=== PATIENT | male | born 1960 | race Caucasian/White ===

== ENCOUNTER 2024-05-25 05:52 | Inpatient (IN) ==
--- NOTE | 2024-05-01 11:03 | PAT Medication Instructions ---
Medication Instructions Date of Service May 01, 2024 Home Medications Medication Instructions Recorded tramadol 50 mg tablet 50 mg PO Q6H PRN pain #15 tabs 04/03/24 metformin 1,000 mg tablet 2,000 mg PO QPM atorvastatin 10 mg tablet 20 mg PO QPM fluticasone propionate 50 mcg/actuation nasal spray,suspension 2 spray intranasal DAILY PRN lisinopril 10 mg tablet 40 mg PO QAM omeprazole 20 mg capsule,delayed release 20 mg PO QAM polyethylene glycol 3350 17 gram oral powder packet (Miralax) 17 g PO DAILY PRN sennosides 8.6 mg-docusate sodium 50 mg tablet (Senna with Docusate Sodium) 2 tab PO BID PRN wheat dextrin 3 gram/3.5 gram oral powder packet (Benefiber Clear Sugar Free(dextrin)) 1 packet PO DAILY PRN albuterol sulfate 90 mcg/actuation aerosol inhaler 2 puff inhalation QID PRN olopatadine 0.2 % eye drops 1 drp ophthalmic (eye) BID PRN vitamin B12 1,000 mcg-folic acid 400 mcg sublingual tablet 1 tab sublingual QAM zolpidem 5 mg tablet (Ambien) 5 mg PO HS tramadol 50 mg tablet 50 mg PO Q6H PRN amlodipine 5 mg tablet 10 mg PO QAM cholecalciferol (vitamin D3) 125 mcg (5,000 unit) tablet (Vitamin D3) 125 mcg PO DAILY fluticasone fur. 100 mcg-umeclid 62.5 mcg-vilant 25 mcg inhalat.powder (Trelegy Ellipta) 1 inh inhalation QAM gabapentin 300 mg capsule 300 mg PO TID loratadine 10 mg tablet (Claritin) 10 mg PO QAM metoprolol succinate 25 mg tablet,extended release 24 hr 12.5 mg PO QAM semaglutide 0.25 mg or 0.5 mg (2 mg/3 mL) subcutaneous pen injector (Ozempic) 0.5 mg subcut UD STOP 7 days before surgery semaglutide 0.25 mg or 0.5 mg (2 mg/3 mL) subcutaneous pen injector (Ozempic) 0.5 mg subcut UD Continue as directed fluticasone propionate 50 mcg/actuation nasal spray,suspension 2 spray intranasal DAILY PRN(if needed) DO NOT take the morning of surgery lisinopril 10 mg tablet 40 mg PO QAM polyethylene glycol 3350 17 gram oral powder packet (Miralax) 17 g PO DAILY PRN sennosides 8.6 mg-docusate sodium 50 mg tablet (Senna with Docusate Sodium) 2 tab PO BID PRN wheat dextrin 3 gram/3.5 gram oral powder packet (Benefiber Clear Sugar Free(dextrin)) 1 packet PO DAILY PRN vitamin B12 1,000 mcg-folic acid 400 mcg sublingual tablet 1 tab sublingual QAM cholecalciferol (vitamin D3) 125 mcg (5,000 unit) tablet (Vitamin D3) 125 mcg PO DAILY loratadine 10 mg tablet (Claritin) 10 mg PO QAM Take morning of surgery With a small sip of water, OTHERWISE NOTHING TO EAT OR DRINK AFTER MIDNIGHT: omeprazole 20 mg capsule,delayed release 20 mg PO QAM albuterol sulfate 90 mcg/actuation aerosol inhaler 2 puff inhalation QID PRN(use if needed; please bring with you to hospital day of surgery if possible) olopatadine 0.2 % eye drops 1 drp ophthalmic (eye) BID PRN(if needed) tramadol 50 mg tablet 50 mg PO Q6H PRN(if needed) amlodipine 5 mg tablet 10 mg PO QAM fluticasone fur. 100 mcg-umeclid 62.5 mcg-vilant 25 mcg inhalat.powder (Trelegy Ellipta) 1 inh inhalation QAM gabapentin 300 mg capsule 300 mg PO TID metoprolol succinate 25 mg tablet,extended release 24 hr 12.5 mg PO QAM Take evening before surgery metformin 1,000 mg tablet 2,000 mg PO QPM atorvastatin 10 mg tablet 20 mg PO QPM sennosides 8.6 mg-docusate sodium 50 mg tablet (Senna with Docusate Sodium) 2 tab PO BID PRN(if needed) albuterol sulfate 90 mcg/actuation aerosol inhaler 2 puff inhalation QID PRN(if needed) olopatadine 0.2 % eye drops 1 drp ophthalmic (eye) BID PRN(if needed) tramadol 50 mg tablet 50 mg PO Q6H PRN(if needed) zolpidem 5 mg tablet (Ambien) 5 mg PO HS gabapentin 300 mg capsule 300 mg PO TID Other Notes If you have any questions please call us at [phone] or [phone] or [phone] or [phone]
--- NOTE | 2024-05-04 11:02 | Anesthesiology Consultation ---
Date of Service May 04, 2024 Assessment & Plan (1) Encounter for pre-operative examination: - Check BSG DOS - Infectious disease screening: Per assessment on 05/04/24- No known recent infectious disease contacts or current infectious disease symptoms. - Semaglutide instructions: Patient informed by PAT to stop 7 days prior to surgery- voiced understanding. DOS 05/25/24. Advised last dose to be 05/13/24. - Patient acceptable risk for surgery pending surgeon-ordered PCP preop evaluation ([facility] Gena Sosa, appt 05/15). Chart Review Chart Review: Patient seen in Pre Admission Testing Teaching & Discussion Pre-Anesthesia Teaching/Discussion Notes: Instructed NPO after midnight before surgery,except medications with 15 cc of water. Medication instructions provided according to the PAT guidelines. History Surgery Operation Date: 05/25/24 07:30 Proposed Procedures p Left L3-L4 Extreme Lateral Interbody Fusion, L3-L4 Fusion, L3 Laminectomy, With CT Navigation and Spinal Cord Monitoring - Fco Henry MD Height/Weight Height: 6 ft 1 in Weight: 150 kg Allergies Allergy/AdvReac Type Severity Reaction Status Date / Time No Known Allergies Allergy Verified 04/30/24 14:53 Medications Home Medications Medication Instructions Recorded Confirmed Last Taken metformin 1,000 mg tablet 2,000 mg PO QPM #0 tabs 01/03/14 04/30/24 11/23/21 atorvastatin 10 mg tablet 20 mg PO QPM #0 tabs 12/02/15 04/30/24 11/23/21 fluticasone propionate 50 2 spray intranasal DAILY PRN 12/21/17 04/30/24 Unknown mcg/actuation nasal Allergy Symptoms spray,suspension lisinopril 10 mg tablet 40 mg PO QAM 12/21/17 04/30/24 11/25/21 06:00 omeprazole 20 mg capsule,delayed 20 mg PO QAM 12/21/17 04/30/24 11/23/21 release polyethylene glycol 3350 17 gram 17 g PO DAILY PRN Constipation 12/21/17 04/30/24 11/24/21 oral powder packet (Miralax) sennosides 8.6 mg-docusate sodium 2 tab PO BID PRN Constipation 12/21/17 04/30/24 12/29/17 50 mg tablet (Senna with Docusate Sodium) wheat dextrin 3 gram/3.5 gram oral 1 packet PO DAILY PRN Constipation 12/21/17 04/30/24 Unknown powder packet (Benefiber Clear Sugar Free(dextrin)) albuterol sulfate 90 mcg/actuation 2 puff inhalation QID PRN Wheezing 11/19/21 04/30/24 Unknown aerosol inhaler olopatadine 0.2 % eye drops 1 drp ophthalmic (eye) BID PRN 11/19/21 04/30/24 Unknown Itching vitamin B12 1,000 mcg-folic acid 1 tab sublingual QAM 11/19/21 04/30/24 Unknown 400 mcg sublingual tablet zolpidem 5 mg tablet (Ambien) 5 mg PO HS Sleep 11/19/21 04/30/24 11/23/21 tramadol 50 mg tablet 50 mg PO Q6H PRN pain #15 tabs 04/03/24 04/30/24 Unknown amlodipine 5 mg tablet 10 mg PO QAM 04/30/24 04/30/24 Unknown cholecalciferol (vitamin D3) 125 125 mcg PO DAILY 04/30/24 04/30/24 Unknown mcg (5,000 unit) tablet (Vitamin D3) fluticasone fur. 100 mcg-umeclid 1 inh inhalation QAM 04/30/24 04/30/24 Unknown 62.5 mcg-vilant 25 mcg inhalat.powder (Trelegy Ellipta) gabapentin 300 mg capsule 300 mg PO TID 04/30/24 04/30/24 Unknown loratadine 10 mg tablet (Claritin) 10 mg PO QAM 04/30/24 04/30/24 Unknown metoprolol succinate 25 mg 12.5 mg PO QAM 04/30/24 04/30/24 Unknown tablet,extended release 24 hr semaglutide 0.25 mg or 0.5 mg (2 0.5 mg subcut UD 04/30/24 04/30/24 Unknown mg/3 mL) subcutaneous pen injector (Ozempic) Past Medical History Medical History Acid reflux CAD (coronary artery disease) Mild nonobstructive CAD per 2021 cath History of COVID-19 06/2019- asymptomatic Hx of colonic polyps Hx of constipation Hx of shortness of breath s/p cardiac/pulmonary evaluation/workup- no definitive etiology found per patient No longer has issues since weight loss Reason for PRN inhaler Hyperlipidemia Hypertension Insomnia Lumbar radiculopathy Osteoarthritis Pre-diabetes Taking metformin Seasonal allergies Sleep apnea CPAP (compliant) Spondylolisthesis, lumbar region Thoracic aortic ectasia CTA Chest 10/2023: Ectasia of the ascending thoracic aorta measuring 43 mm, not significantly changed since prior exam Exercise / Class Metabolic Activity III < 4 Walking/Shop/Light housework Past Family History Family History Sister Family hx of colon cancer BOWEL RESECTION Family history of diabetes mellitus Other Colorectal cancer Past Surgical History Surgical History Amputation of right index finger Partial H/O umbilical hernia repair History of cholecystectomy (2016) History of repair of rotator cuff Left x2 History of tonsillectomy Hx of cardiac cath (2021) No stents Hx of colonoscopy with polypectomy Hx of wisdom tooth extraction Past Anesthesia History No Hx of Anesthesia Complications and No Family Hx of Anesthesia Complications History of PONV No Hx of PONV and No Hx of Motion Sickness Social History Smoking Status: Former smoker tobacco type: cigarettes Do You Dip or Chew Tobacco: No Smoking End Date: Quit 27 years ago Hx Alcohol Use: Yes Alcohol type: beer alcohol intake frequency: holidays/special occasions only Hx Substance Use: No substance use type: does not use Review of Systems Patient denies chest pain, shortness of breath, fever, chills, cough, wheezing. Physical Exam Vital Signs BP 12/75 P 65 TEMP 98.3 SP02 96%RA RESP 16 Physical Full cervical extension range of motion. Full TMJ range of motion. TMD > 3.5 finger breaths Mallampati Score III Dentition: intact Lungs: clear throughout to auscultation Cardiac: regular rate and rhythm, no murmurs noted Spine: normal Carotid arteries: negative bruit Extremities: no LE edema, partial right index finger amputation Thick neck Lab Results Anesthesia Preop Results Results Anesthesia Widget: WBC 8.79 K/ul (4.8-10.8) 04/03/24 Hgb 16.0 g/dl (14.0-18.0) 04/03/24 Hct 45.6 % (42.0-52.0) 04/03/24 Plt 295 K/uL (130-400) 04/03/24 Na 139 mmol/L (136-145) 04/03/24 K 4.0 mmol/L (3.5-5.1) 04/03/24 Cl 105 mmol/L (98-107) 04/03/24 CO2 26 mmol/L (21-32) 04/03/24 BUN 13 mg/dl (6-23) 04/03/24 Creat 0.92 mg/dl (0.6-1.4) 04/03/24 Glucose Level 101 mg/dl (70-99(Fasting)) H 04/03/24 PT 10.3 Seconds (9.0-12.0) 05/04/24 PTT 29 Seconds (21-31) 05/04/24 INR 0.9 (0.9-1.1) 05/04/24 HA1c 6.7 % (4.5-5.6) H 05/04/24 Urine Color Yellow 04/03/24 Urine Appearance Clear (Clear) 04/03/24 Urine pH 5.5 (4.5-7.5) 04/03/24 Urine Specific [place] 1.033 (1.000-1.030) H 04/03/24 Urine Protein Negative (Negative) 04/03/24 Urine Glucose (UA) Negative (Negative) 04/03/24 Urine Ketones Negative (Negative) 04/03/24 Urine Blood Negative (Negative) 04/03/24 Urine Nitrite Negative (Negative) 04/03/24 Urine Bilirubin Negative (Negative) 04/03/24 Urine Urobilinogen Negative (Negative) 04/03/24 Urine Leukocyte Esterase Negative (Negative) 04/03/24 Blood Type O Positive 05/04/24 Antibody Screen NEGATIVE 05/04/24 Testing Electrocardiogram Date: 05/04/24 SR with marked sinus arrhythmia at 71bpm. "Otherwise normal ECG" Echocardiogram Date: 08/11/21 LVEF 60%. Mildly increased cLV wall thickness. Grade I DD. No pericardial effusion. Proximal ascending thoracic aorta moderately enlarged at 4.6cm. LV wall motion is normal. Stress Test Date: 07/23/21 Type: nuclear Lexiscan nuclear cardiac stress test positive for reversible ischemia. Moderate area of moderate intensity partly reversible perfusion defect of the inferior wall. LVEF 53% with stress and rest EF 45%. Mild LV systolic dysfunction. Cardiac Catheterization Date: 08/19/21 Mild non obstructive CAD. Medical management recommended. Elevated right-sided and left-sided filling pressures. Other Testing CTA Chest Date: 10/31/23 LUNGS/PLEURA: Calcified granuloma the left lung apex. No suspicious pulmonary nodules. Central airways are clear. No pleural effusion or pneumothorax. Ectasia of the ascending thoracic aorta measuring 43 mm, not significantly changed since prior exam. Moderate coronary artery atherosclerosis most significant in the LAD distribution. CTA Chest reviewed by cardiology- per cardio note 11/10/23, "Please inform the CT chest shows ascending aorta size has not increased. We will continue to monitor and follow up in 1-2 years"
[2024-05-25] MEDS: LR 60ML/HR IV SCH (06:25)
[2024-05-25] MEDS ORDERED: REMIFENTANIL HCL 1 MG VIAL IV ONE (06:51)
[2024-05-25] MEDS ORDERED: ALBUMIN HUMAN 5% 12.5 GM/250 ML VIAL IV ONE (06:51)
[2024-05-25] MEDS: LR 15ML/HR IV SCH (06:51)
[2024-05-25] MEDS ORDERED: PROPOFOL IV EMULSION 10 MG/ML 100 ML VIAL IV ONE (06:54)
[2024-05-25] MEDS ORDERED: MIDAZOLAM HCL 1 MG/ML 2ML VIAL ONE (07:05)
[2024-05-25] MEDS ORDERED: fentaNYL citrate PF 100 MCG/2 ML VIAL ONE ×2 (07:05→11:34)
[2024-05-25] MEDS ORDERED: PROPOFOL IV EMULSION 10 MG/ML 20 ML VIAL IV ONE (07:05)
[2024-05-25] MEDS ORDERED: ROCURONIUM BROMIDE 10 MG/ML 5 ML VIAL IV ONE (07:05)
[2024-05-25] MEDS ORDERED: SUCCINYLCHOLINE CHLORIDE 20 MG/ML 10 ML VIAL IV ONE (07:05)
[2024-05-25] MEDS ORDERED: LIDOCAINE 2% 2 ML VIAL/AMP(20MG/ML) INFIL ONE (07:05)
--- OUTSIDE RECORDS SUMMARY | 2024-05-25 07:19 | External Medical Summary | Summary of Care ---
Author Name Unknown Organization [facility] Address [address] [place] [address] Phone [phone] Care Team Providers Care Shoe Associate Name Role Phone Christa Valencia MD Primary Care Provider [phone] Reason for Visit * Reason Comments pre-op exam Encounter Details Date Type Department Care Team (Late st Contact Info) Description 05/15/2024 4:20 PM EST Office Visit General Internal Medicine [facility] [address] [facility] [place] [address] Christa Valencia MD [address] [place] [address] Preoperative general physical examination*; Spinal stenosis of lumbar region with neurogenic claudication; Facet arthritis of lumbar region; HTN, goal below 130/80; Type 2 diabetes, HbA1c goal < 7% ([facility]); Dyslipidemia, goal LDL below 100; DELMIS on CPAP; Nocturnal hypoxemia due to obesity; Body mass index (BMI) of 45.0 to 49.9 in adult ([facility]); Screening for prostate cancer; FH: prostate cancer; Encounter for long-term (current) use of medications Allergies No known active allergiesdocumented as of this encounter (statuses as of 05/15/2024) Medications B-12 1000 MCG Oral TabletIndications: Prediabetes,Low serum vitamin B12 1 tab daily, start 04/28/2020 1 Tab 04/28/19 21 Active Sennosides-Docusat e Sodium 8.6-50 MG Oral TabletIndications: Other constipation Take 2 Tablets by mouth 2 times a day as needed for Constipation. 1 Tablet 07/02/19 22 Active Polyethylene Glycol 3350 17 GM/SCOOP Oral PowderIndications: Other constipation Take 17 g by mouth daily as needed for Constipation. Dissolve one heaping tablespoon in 8 ounces of water or juice. 1 g 07/02/19 22 Active Olopatadine HCl 0.1 % Ophthalmic Solution (Pataday)Indicatio ns:Allergic conjunctivitis, bilateral Instill into both eyes 1 Drop 2 times a day as needed for Itching. 5 mL 5 07/02/19 22 Active Nystatin 746931 UNIT/GM External CreamIndications:C andidiasis, intertriginous,Bod y mass index (BMI) of 45.0 to 49.9 in adult (HCC) Apply topically to affected area 2 times a day . Till better. 60 g 1 12/16/19 22 Active Additional Information Patient taking differently:TopicalPRN, Other, rash, Till better., Reported on 05/15/2024 CPAP every night at bedtime . Auto 12-20 cm Active Loratadine 10 MG Oral Tablet (Claritin) Take 1 Tablet by mouth in the morning. 30 Tablet 01/07/20 22 Active Vitamin D 125 MCG (5000 UT) Oral CapsuleIndications :Vitamin D deficiency [address] 03/29/2023 03/29/20 23 Active 3 Series BP Monitor/Upper Arm DeviceIndications: HTN, goal below 140/90,DELMIS on CPAP Use to monitor blood pressure.--larg e cuff 1 Each 04/12/20 23 Active Additional Information Patient not taking.Reported on 05/15/2024 Ondansetron HCl 4 MG Oral TabletIndications: Nausea Take 1 Tablet by mouth every 8 hours as needed for Nausea. 30 Tablet 06/06/19 24 Active Lisinopril 40 MG Oral TabletIndications: HTN, goal below 140/90 TAKE 1 TABLET BY MOUTH EVERY DAY IN THE MORNING 90 Tablet 3 06/16/19 24 Active Albuterol Sulfate (2.5 MG/3ML) 0.083% Inhalation Nebulization Solution (Proventil) Inhale 1 Vial via nebulizer every 4 hours as needed for Wheezing. , use in place of rescue inhaler. 180 mL 11 07/21/19 24 Active Atorvastatin Calcium 20 MG Oral Tablet (Lipitor)Indicatio ns:Type 2 diabetes mellitus with hemoglobin A1c goal of less than 7.0% (HCC),Dyslipidemia , goal LDL below 100,Atherosclerosi s Take 1 Tablet by mouth in the morning. 90 Tablet 3 09/28/19 24 Active Albuterol Sulfate HFA 108 (90 Base) MCG/ACT Inhalation Aerosol SolutionIndication s:Moderate persistent asthma with acute exacerbation TAKE 2 PUFFS BY MOUTH EVERY 4 HOURS NEEDED FOR WHEEZE 18 g 1 11/03/19 24 Active Zolpidem Tartrate 5 MG Oral Tablet (Ambien)Indication s:Shift work sleep disorder TAKE 1 TABLET BY MOUTH EVERY DAY AT BEDTIME NEEDED FOR SLEEP 30 Tablet 3 02/06/20 24 Active Trelegy Ellipta 100-62.5-25 MCG/ACT Aerosol Powder Breath Activated (Fluticasone-Umecl idinium-Vilanterol )Indications:Moder ate persistent asthma without complication INHALE 1 PUFF BY MOUTH IN THE MORNING 60 Each 5 03/05/20 24 Active metFORMIN HCl ER 500 MG Oral Tablet Extended Release 24 Hour (Glucophage XR)Indications:Pre diabetes TAKE 4 TABLETS BY MOUTH DAILY WITH DINNER. 360 Tablet 1 03/20/20 24 Active Ozempic (0.25 or 0.5 MG/DOSE) 2 MG/3ML Solution Pen-injector (Semaglutide(0.25 or 0.5MG/DOS))Indicat ions:Type 2 diabetes, HbA1c goal < 7% (HCC) INJECT 0.5 MG UNDER THE SKIN ONCE A WEEK. DO NOT START BEFORE FEBRUARY 05, 2024. 3 mL 1 04/02/20 24 Active amLODIPine Besylate 5 MG Oral Tablet (Norvasc) Take 2 Tablets by mouth in the morning. 180 Tablet 3 04/02/20 24 Active Metoprolol Succinate ER 25 MG Oral Tablet Extended Release 24 Hour (toPROL XL)Indications:HTN , goal below 130/80,Ascending aorta dilatation (HCC) TAKE 1/2 TABLET BY MOUTH IN THE MORNING. ST 12/22/2023. 15 Tablet 2 04/03/20 24 Active Naproxen 500 MG Oral Tablet (Naprosyn)Indicati ons:Primary osteoarthritis of both knees,Pain of right hand TAKE 1 TABLET EACH DAY ON DAYS OF WORK 30 Tablet 5 04/09/20 24 Active Additional Information Patient not taking.Reported on 05/15/2024 Omeprazole 20 MG Oral Capsule Delayed Release (PriLOSEC)Indicati ons:Other chronic gastritis without hemorrhage,Primary osteoarthritis of both knees TAKE BY MOUTH 1 CAPSULE IN THE MORNING] 90 Capsule 2 04/16/20 24 Active Gabapentin 300 MG Oral Capsule (Neurontin) Take 2 Capsules by mouth in the morning and 2 Capsules at noon and 2 Capsules before bedtime. 05/09/19 25 Active documented as of this encounter (statuses as of 05/15/2024) Active Problems Problem Noted Date Diagnosed Date Spinal stenosis of lumbar re gion with neurogenic claudication 05/15/2024 Facet arthritis of lumbar region 05/15/2024 Vitamin D deficiency 09/28/2023 Body mass index (BMI) of 45.0 to 49.9 in adult 0 07/04/2023 Overview: Per Obesity protocol - Per Obesity protocol - 09/23/2010--BMI: 46.87 kg/m Ascending aorta dilatation 07/14/2022 Type 2 diabetes, HbA1c goal < 7% 02/01/2022 Overview: Per Prediabetes protocol Gastritis 01/30/2018 Overview (02/21/2018): St ppi 12/10-EGD 01/10 gastritis---bx neg HP, mild diffuse gastritis Shift work sleep disorder 09/12/2017 DELMIS on CPAP 05/18/2017 Overview (01/06/2022): Sleep study 10/09--sev OSAS--03/11-Cpap tit ouxca-Pzdc-XAD 10-20 cmH2O with heated humidity with a large F & P Simplus mask. 05/09--refuses rpt study/O2/sleep study 05/08- nocturnal oximetry shows desaturation to 81% with pattern on sleep disordered breathing.-st O2 pnd sleep study HTN, goal below 130/80 05/18/2017 Nocturnal hypoxemia due to obesity 10/07/2016 Heat stroke 10/04/2016 Overview (10/23/2016): Syncope rel to heat exhaustion at work --09/22/2012;09/09/2014; 10/04/16(1 episode after working outdoors at home 12/01/2015) History of syncope 10/04/2016 Overview (10/07/2016): 4th epi, EKG NSR, echo--ef 65%,nl valves. Status post laparoscopic cholecystectomy 016 Overview (06/08/2016): 06/07/16--lap demian with umbilical hernia incarcerated with fat -resection- 12/08-sx epi pain, n/v, ER labs nml--US-stones in contracted GB-refer sg++ Family history of GI malignancy 12/01/2015 Overview (12/01/2015): Sister -colon ca age 66 History of anal fissures 11/13/2014 FH: prostate cancer 05/16/2014 Overview (05/16/2014): Father--diag age 86- -diag sp sayn-HP-bdqb to bone Calcaneal spur of left foot 11/08/2013 Overview (11/08/2013): Xray---06/08- mod size S/P complete repair of rotator cuff 05/08/2013 Overview (01/25/2014): 01/11/14 Dr Cortez diagnostic arthroscopy w/ debridement, distal clavicle resection & revision rotator cuff repair Arthr --06/19/13-[facility] Dr Cortez 06/07/13 MRI Lt Shoulder: full thickness rotator cuff effusion subacromial subdeltoid Mild ac jt xr 04/06 Glaucoma suspect 01/25/2013 Overview (06/03/2016): [facility] [place] PLANTAR FIBROMATOSIS--RT 03/18/2010 Overview (09/23/2010): 03/04-Rt wmzi-wb-mvpvy pl spur, more broad-based insertional spur of the Achilles tendon on the posterior aspect of the calcaneus. Hyperplastic polyp of sigmoid colon 07/04/2009 Overview (12/16/2015): 12/08-[facility] csope --5 mm SC-P-> HPP (rpt 5 yrs FH colon ca sister) 10/03-csope--Anal fissure.- Left sided diverticulosis.--Start stool softener twice daily.- Start stool bulking agent (ie Metamucil or Citrucel).- Start topical nitroglycerin (prescription provided). Felix Green MD 07/04/2009 -- defers csope-- Fobt-08/02-neg Metabolic syndrome 07/04/2009 Overview (06/09/2015): Dr Verma/No diab retinopathy---11/16/11,,12/11/12, 06/06/15 Screening for prostate cancer 07/04/2009 Overview (07/04/2009): 07/02--psa 0.45 Thoracic spondylosis 06/17/2009 Overview (09/23/2010): On CT chest LH 06/04 Atherosclerosis 06/17/2009 Overview (08/30/2021): On CT LH >>>08/28/21-cath>Mild non obstructive CAD Primary osteoarthritis of both knees 01/03/2009 ACQ ACANTHOSIS NIGRICANS 01/03/2009 Dyslipidemia, goal LDL below 100 documented as of this encounter (statuses as of 05/15/2024) Resolved Problems Problem Noted Date Diagnosed Date Resolved Date Body mass index (BMI) of 50. 0 to 59.9 in adult 08/02/2022 07/07/2023 Overview: Per Obesity protocol - 09/23/2010--BMI: 46.87 kg/m Chronic obstructive pulmonary disease 12/16/2021 07/12/2022 Diabetes mellitus without complication 12/16/2021 01/06/2022 Prediabetes 10/30/2018 01/07/2022 Overview: Per Prediabetes protocol Body mass index (BMI) of 45. 0 to 49.9 in adult 07/05/2017 08/05/2022 Overview: Per Obesity protocol #1 - 09/23/2010--BMI: 46.87 kg/m Body mass index (BMI) of 40. 0 to 44.9 in adult 01/24/2017 07/08/2017 Overview: Per Obesity protocol #1 - 09/23/2010--BMI: 46.87 kg/m Arrhythmia 10/04/2016 08/16/2017 Essential hypertension with goal blood pressure less than 140/90 08/27/2015 06/03/2016 IFG (impaired fasting glucose) 01/26/2013 08/01/2021 Anal fissure 10/06/2010 01/25/2013 Body mass index (BMI) of 45.0-49.9 in adult 09/23/2010 01/27/2017 Overview (09/23/2010): 09/23/2010--BMI: 46.87 kg/m Hematuria 06/17/2009 07/06/2009 Overview (01/24/2017): Ua-- 07/02--sm blood-but 1-4 rbc ICD-10 update of inactive term Prehypertension 03/12/2009 05/08/2013 Overview (03/17/2009): 03/17/2009--see my prior notes x 2-- Modified per HTN protocol #16. TEAR MENISCUS NEC, [id number] 02/25/2009 01/06/2022 Overview (03/17/2009): Ltz62--ocvg DrRoeshrodríguez 03/07 --given cortisone in the left knee and released to return to work. Snoring 01/03/2009 01/06/2022 Overview (05/16/2014): 05/09--refuses rpt study/O2/sleep study 05/08- nocturnal oximetry shows desaturation to 81% with pattern on sleep disordered breathing.-st O2 pnd sleep study Hypertrophic and atrophic condition of skin 01/03/2009 05/29/2015 Routine medical exam 01/03/2009 016 ADVANCE DIRECTIVE INFORMATION 11/20/2004 05/29/2015 Overview (11/20/2004): No, Advance Directive brochure offered , patient declined. HYPERTENSION NOS 03/13/2009 Overview (03/13/2009): Modified per HTN protocol #16. Morbid obesity, BMI not known 07/22/2009 Overview (07/22/2009): Per Obesity Taxonomy documented as of this encounter (statuses as of 05/15/2024) Immunizations Name Administration Dates Next Due COVID-19 mRNA, LNP-s, No Pre serve, 2-Dose Series ([employer]) 03/20/2021,02/27/2021 H1N1 2008 Influenza, IM 05/23/2009 Pneumococcal Conjugate Vacci ne, 20-valent ([id number]) 01/06/2022 Seasonal Influenza Vac., MDV , IM, 0.5 mL (Fluzone) 05/16/2014,01/17/2013,03/18/2010,2008 Seasonal Influenza, PF, 6 M & above, IM , (FluLaval or Fluzone) 03/07/2023,01/06/2022,01/04/2020,2018,01/20/2018,05/18/2017 Seasonal Influenza, Quadriva lent, No Preserve, IM 02/06/2021,01/20/2018,02/21/2016,2014 TD, Preservative Free 10/24/2018 TDAP, Age 7 and older, IM (Adacel) 09/23/2008 Zoster Vaccine Recombinant (Shingrix) 10/18/2019 ,04/17/2019 documented as of this encounter Social History Tobacco Use Types Packs/Day Years Used Date Smoking Tobacco: Former Cigarettes 1 10 0 04/25/1985 - 04/25/1995 Smokeless Tobacco: Never Alcohol Use Standard Drinks/Week Comments Yes 0 (1 standard drink = 0.6 oz pur e alcohol) OCC BEER PHQ-2 Answer Date Recorded PHQ Adult Total Score 0 03/29/2023 Hunger Vital Sign Answer Date Recorded Worried About Running Out of Food in the Last Ye ar Never true 04/17/2019 Ran Out of Food in the Last Year Never true 04/17/2019 Sex and Gender Information Value Date Recorded Sex Assigned at Male 10/24/2018 8:35 AM EDT Legal Sex Male 6:01 AM EST Gender Identity Male 10/24/2018 8:35 AM EDT Sexual Orientation Straight 10/24/2018 8: 35 AM EDT documented as of this encounter Last Filed Vital Signs Vital Sign Reading Time Taken Comments Blood Pressure 118/80 05/15/2024 4:15 PM EST Pulse 76 05/15/2024 4:15 PM EST Temperature 36.9 C (98.5 F) 05/15/2024 4:15 PM ES T Respiratory Rate 18 05/15/2024 4:15 PM EST Oxygen Saturation - - Inhaled Oxygen Concentration - - Weight 149.5 kg (329 lb 9.6 oz) 05/15/2024 4:15 PM EST Height 177.8 cm (5' 10") 05/15/2024 4:15 PM EST Body Mass Index 47.29 05/15/2024 4:15 PM EST documented in this encounter Functional Status * Are you deaf or do you have serious difficulty hearing? Answer Date of Assessment Author No 10/05/2016 2:20 AM Radha Thapa RN * Are you blind or do you have serious difficulty seeing, even when wearing glasses? Answer Date of Assessment Author No 10/05/2016 2:20 AM Radha Thapa RN * Do you have serious difficulty walking or climbing stairs? (5 years old or older) Answer Date of Assessment Author No 10/05/2016 2:20 AM Radha Thapa RN * Do you have difficulty dressing or bathing? (5 years old or older) Answer Date of Assessment Author No 10/05/2016 2:20 AM Radha Thapa RN * Because of a physical, mental, or emotional condition, do you have difficulty doing errands alone such as visiting a doctors office or shopping? (15 years old or older) Answer Date of Assessment Author No 10/05/2016 2:20 AM Radha Thapa RN documented as of this encounter Mental Status * Because of a physical, mental, or emotional condition, do you have serious difficulty concentrating, remembering, or making decisions? (5 years old or older) Answer Entry Date Author No 10/05/2016 2:20 AM Radha Thapa RN documented in this encounter Progress Notes * Christa Valencia MD - 05/15/2024 4:31 PM EST SUBJECTIVE: Sukumar Harper is a 63 year old male. Chief Complaint Patient presents with pre-op exam Nursing Notes: Marlen Wang LPN 05/15/24 1637 Signed The patient has been properly identified by confirmation of name and date of . Chief Complaint Patient presents with pre-op exam HPI: Patient presents Is being seen for preoperative evaluation at the request of Dr.Eric Henry --we do not have any request from surgeon or any follow up notes updated in chart Wt Readings from Last 6 Encounters: 05/15/24 (!) 329 lb 9.6 oz (149.5 kg) 03/31/24 (!) 330 lb 11.2 oz (150 kg) 12/21/23 (!) 342 lb (155.1 kg) 09/28/23 (!) 341 lb 8 oz (154.9 kg) 07/21/23 (!) 343 lb (155.6 kg) 07/15/23 (!) 343 lb 14.7 oz (156 kg) BP Readings from Last 5 Encounters: 05/15/24 118/80 04/01/24 120/73 12/21/23 142/84 09/28/23 140/80 07/21/23 132/78 Procedure and Date of surgery:lumbar decompression and spinal fusion on 05/25/24. Patient was seen at [facility] ER 04/03/24 with low back pain radiating down leftleg. Labs normal CBC, CMP, CK 89, D-dimer 0.44 magnesium 2 X-ray lumbar spine-facet degenerative changes L4-S1, moderate disc space narrowing L5-S1. Was givenconservative treatment and discharged,. -pain got worse, went to [facility] ER 04/03/2024. Labs-normal CBC, BMP, LFT, UA. CT abdomen and pelvis [id number] diverticulosis descending and sigmoid colon, mild pericolonic inflammatory changes left lower quadrant, hepatomegaly and fatty infiltration of the liver, advanced facet hypertrophic changes L4-5 and L5-S1. Lumbar spine CT-moderate to advanced facet hypertrophic changes throughout the lumbar spine most pronounced L4 to S1, possible stent spinal stenosis suggested at L4-5. He was discharged with a prescription for Augmentin three times daily for 10 days lidocaine patch and tramadol 50 mg q.6 hours PRN 15.. States Saw surgeon Dr. Henry 04/05/2024, was given Medrol Dosepak per patient, there was some discussion regarding gabapentin but was not sure if he can take it while at work, he has not worked since, started gabapentin 04/26/2024 and dose increased to 300 mg 2 tablets 3 times a day on 05/08/2024, tolerating well. Had preoperative evaluation 05/04/2024, states blood pressure that day was 130/80 Accompanied by his . PMH-HTN, Prediabetes,hyperinsulinemia--now diabetic since 02/2023 ,morbid obesity, mild aortic atherosclerotic calcification, H/O recurrent syncope related to heat exhaustion at work in the past, Primary osteoarthritis knees, GERD , B12 def, history of intertrigo, OSAS on auto-PAP [facility], H/o laparoscopic cholecystectomy and umbilical hernia repair 05/2016 for symptomatic cholelithiasis, H/o anal fissure occasional constipation now. Intertrigo groin Proximal ascending thoracic aorta moderately enlarged, f/b cardiology--stable on last CT at 43 mm 10/31/2023 Mod moderate persistent asthma and chr rhinitis followed by pulmonology FH of colon cancer in sister, prostate cancer in father-, metastatic at age 86 age 89 , brother also diag prostate ca age 75 H/o colonoscopy with polypectomy 12/08-[facility] csope --5 mm SC-P-> HPP >>was due 11/2020. Colonoscopy [facility] 11/25/21--no polyps--Sc and Dc tics--rpt 3-5 yrs 07/14- -Lexiscan nuclear cardiac stress test positive for reversible ischemia. Moderate area on moderate intensity partly reverisble perfusion defect of the inferior wall. The LV ejection fraction is calculated at 53 % with stress and resting EF of 45%. Mild left ventricular systolic dysfunction. 08/14-echo-EF 60%, mild LVH, mild diastolic dysfunction, proximal ascending thoracic aorta moderately enlarged at 4.6 cm, aortic root mildly enlarged. Cardiac catheterization-08/14-mild nonobstructive CAD 05/04/2024-EKG at the hospital-NSR at 71 B p.m., occasional PAC Tolerating Ozempic which was started 12/2023, dose increased 5 mg weekly 02/05/2024, lost weight 13lbs as above, last dose 05/13/2024 and is being held prior to surgery Has been off NSAIDs since he has not been working Is in a wheelchair today. Denies recent fever chills runny nose sore throat cough congestion heartburn. Denies abdominal painnausea vomiting or diarrhea, history of constipation controlled on medications. No leg edema. No UTI symptoms Immunization History Administered Date(s) Administered COVID-19 mRNA, LNP-s, No Preserve, 2-Dose Series ([employer]) 02/27/2021, 03/20/2021 H1N1 2009 Influenza, IM 05/23/2009 Pneumococcal Conjugate Vaccine, 20-valent ([id number]) 01/06/2022 Seasonal Influenza Vac., MDV, IM, 0.5 mL (Fluzone) 02/18/2009, 03/18/2010, 01/17/2013, 05/16/2014 Seasonal Influenza, PF, 6 M & above, IM , (FluLaval or Fluzone) 05/18/2017, 01/20/2018, 02/02/2019, 01/04/2020, 01/06/2022, 03/07/2023 Seasonal Influenza, Quadrivalent, No Preserve, IM 03/06/2015, 02/21/2016, 01/20/2018, 02/06/2021 TD, Preservative Free 10/24/2018 TDAP, Age 7 and older, IM (Adacel) 09/23/2008 Zoster Vaccine Recombinant (Shingrix) 04/17/2019, 10/18/2019 PSA Results: Lab Results Component Value Date/Time PSA - [facility] 0.75 09/20/2023 03:33 PM PSA - [facility] 0.77 07/14/2022 04:18 PM PSA - [facility] 0.68 07/01/2021 04:59 PM PSA - [facility] 0.77 10/12/2019 11:21 AM PSA - [facility] 0.70 11/16/2017 10:35 AM PSA SCREENING 0.54 2016 07:15 AM PSA SCREENING 0.55 05/21/2015 08:58 AM PSA SCREENING 0.74 05/10/2014 03:05 PM Results for orders placed or performed in visit on 05/11/24 BASIC METABOLIC PANEL Result Value Ref Range BUN 10 6 - 20 mg/dL CREATININE 0.9 0.6 - 1.2 mg/dL EGFR >90 >=60 mL/min SODIUM 139 135 - 146 mmol/L POTASSIUM 4.2 3.5 - 5.1 mmol/L CHLORIDE 99 98 - 107 mmol/L CO2 26 22 - 32 mmol/L ANION GAP 14 7 - 15 mmol/L GLUCOSE 104 70 - 120 mg/dL CALCIUM 9.8 8.4 - 10.2 mg/dL HEMOGLOBIN A1C Result Value Ref Range Hemoglobin A1C 6.9 (H) 4.0 - 5.6 % Estimated Average Glucose 151 (H) <126 mg/dL LIPID PANEL WITH DIRECT LDL IF TG IS HIGH Result Value Ref Range Triglycerides 267 (H) <=174 mg/dL Cholesterol 160 <200 mg/dL HDL Cholesterol 35 (L) >39 mg/dL Non-HDL Cholesterol 125 <=159 mg/dL ALBUMIN / CREATININE RATIO, URINE Result Value Ref Range Albumin, Random Urine <1.20 mg/dL Creatinine, Random Urine 80 mg/dL Albumin / Creatinine Ratio, Urine <15 <30 mg/g Creat HEPATIC FUNCTION PANEL Result Value Ref Range Albumin 4.5 3.8 - 5.0 g/dL AST 18 10 - 50 U/L Alkaline Phosphatase 97 35 - 130 U/L ALT 25 10 - 50 U/L Bilirubin, Total 0.4 <=1.2 mg/dL Bilirubin, Direct 0.1 0.0 - 0.3 mg/dL Protein 7.1 6.0 - 8.3 g/dL LDL CHOLESTEROL (DIRECT MEASURE) Result Value Ref Range LDL Cholesterol (Direct Measure) 93 <=129 mg/dL Patient Active Problem List Diagnosis Dyslipidemia, goal LDL below 100 Primary osteoarthritis of both knees ACQ ACANTHOSIS NIGRICANS Thoracic spondylosis Atherosclerosis Hyperplastic polyp of sigmoid colon Metabolic syndrome Screening for prostate cancer PLANTAR FIBROMATOSIS--RT Glaucoma suspect S/P complete repair of rotator cuff Calcaneal spur of left foot Family history of malignant neoplasm of prostate History of anal fissures Family history of GI malignancy Status post laparoscopic cholecystectomy Heat stroke History of syncope Nocturnal hypoxemia due to obesity DELMIS on CPAP HTN, goal below 130/80 Shift work sleep disorder Gastritis Type 2 diabetes, HbA1c goal < 7% ([facility]) Ascending aorta dilatation ([facility]) Body mass index (BMI) of 45.0 to 49.9 in adult ([facility]) Vitamin D deficiency Current Outpatient Medications Medication Sig Dispense Refill B-12 1000 MCG Oral Tablet 1 tab daily, start 04/28/2020 1 Tab 0 Sennosides-Docusate Sodium 8.6-50 MG Oral Tablet Take 2 Tablets by mouth 2 times a day as needed for Constipation. 1 Tablet 0 Polyethylene Glycol 3350 17 GM/SCOOP Oral Powder Take 17 g by mouth daily as needed for Constipation. Dissolve one heaping tablespoon in 8 ounces of water or juice. 1 g 0 Olopatadine HCl 0.1 % Ophthalmic Solution ([place]) Instill into both eyes 1 Drop 2 times a day as needed for Itching. 5 mL 5 Nystatin 501186 UNIT/GM External Cream Apply topically to affected area 2 times a day . Till better. (Patient taking differently: Apply topically to affected area as needed for Other (rash). Till better.) 60 g 1 CPAP every night at bedtime . Auto 12-20 cm Loratadine 10 MG Oral Tablet (Claritin) Take 1 Tablet by mouth in the morning. 30 Tablet 5 Vitamin D 125 MCG (5000 UT) Oral Capsule [address] 03/29/2023 Ondansetron HCl 4 MG Oral Tablet Take 1 Tablet by mouth every 8 hours as needed for Nausea. 30 Tablet 0 Lisinopril 40 MG Oral Tablet TAKE 1 TABLET BY MOUTH EVERY DAY IN THE MORNING 90 Tablet 3 Albuterol Sulfate (2.5 MG/3ML) 0.083% Inhalation Nebulization Solution (Proventil) Inhale 1 Vial via nebulizer every 4 hours as needed for Wheezing. , use in place of rescue inhaler. 180 mL 11 Atorvastatin Calcium 20 MG Oral Tablet (Lipitor) Take 1 Tablet by mouth in the morning. 90 Tablet 3 Albuterol Sulfate HFA 108 (90 Base) MCG/ACT Inhalation Aerosol Solution TAKE 2 PUFFS BY MOUTH EVERY4 HOURS NEEDED FOR WHEEZE 18 g 1 Zolpidem Tartrate 5 MG Oral Tablet (Ambien) TAKE 1 TABLET BY MOUTH EVERY DAY AT BEDTIME NEEDED FOR SLEEP 30 Tablet 3 Trelegy Ellipta 100-62.5-25 MCG/ACT Aerosol Powder Breath Activated (Ssccoagjlcl-Dfbwanhspeck-Zmttqhquje) INHALE 1 PUFF BY MOUTH IN THE MORNING 60 Each 5 metFORMIN HCl ER 500 MG Oral Tablet Extended Release 24 Hour (Glucophage XR) TAKE 4 TABLETS BY MOUTH DAILY WITH DINNER. 360 Tablet 1 Ozempic (0.25 or 0.5 MG/DOSE) 2 MG/3ML Solution Pen-injector (Semaglutide(0.25 or 0.5MG/DOS)) INJECT 0.5 MG UNDER THE SKIN ONCE A WEEK. DO NOT START BEFORE FEBRUARY 05, 2024. 3 mL 1 amLODIPine Besylate 5 MG Oral Tablet (Norvasc) Take 2 Tablets by mouth in the morning. 180 Tablet 3 Metoprolol Succinate ER 25 MG Oral Tablet Extended Release 24 Hour (toPROL XL) TAKE 1/2 TABLET BY MOUTH IN THE MORNING. ST 12/22/2023. 15 Tablet 2 Omeprazole 20 MG Oral Capsule Delayed Release (PriLOSEC) TAKE BY MOUTH 1 CAPSULE IN THE MORNING] 90Capsule 2 Gabapentin 300 MG Oral Capsule (Neurontin) Take 2 Capsules by mouth in the morning and 2 Capsules at noon and 2 Capsules before bedtime. 3 Series BP Monitor/Upper Arm Device Use to monitor blood pressure.--large cuff (Patient not taking: Reported on 05/15/2024) 1 Each 0 Naproxen 500 MG Oral Tablet (Naprosyn) TAKE 1 TABLET EACH DAY ON DAYS OF WORK (Patient not taking: Reported on 05/15/2024) 30 Tablet 5 No current facility-administered medications for this visit. Past Medical History: Diagnosis Date Dyslipidemia, goal to be determined HTN, goal to be determined no meds Morbid obesity, BMI not known (HCC) DELMIS (obstructive sleep apnea) Osteoarthrosis Preglaucoma IOP max 22 OU; C/D 0.6 OU; FH +;VF 09/26 Past Surgical History: Procedure Laterality Date COLONOSCOPY, DIAGNOSTIC (RECTUM) 09/30/2010 diverticulosis, anal fissure COLONOSCOPY, DIAGNOSTIC (RECTUM) 12/03/2015 hyperplastic polyps, repeat 5 yrs/[facility] COLONOSCOPY, DIAGNOSTIC (RECTUM) 11/25/2021 diverticulosis, repeat 3-5 yrs / [facility] CORONARY ANGIOGRAPHY W/RIGHT+LEFT CATH 08/19/2021 CORONARY ANGIOGRAPHY W/RIGHT+LEFT CATH performed by Zo Kelly MD at [facility] DRAINAGE OF FOREARM/WRIST LESION Right 11/30/2014 INCISION AND DRAINAGE FOREARM WRIST DEEP performed by Garrison Smith MD at [facility] EGD, FLEXIBLE, DIAGNOSTIC 12/30/2017 mild gastric inflammation/[facility] LAPAROSCOPY, CHOLECYSTECTOMY WITH CHOLANGIOGRAPHY N/A 06/07/2016 LAPAROSCOPIC CHOLECYSTECTOMY WITH CHOLANGIOGRAM performed by Kirsten Romero DO at OR [facility] METACARPAL FX W/FIXATION Right 11/30/2014 OPEN TREATMENT METACARPAL FRACTURE performed by Garrison Smith MD at OR [facility] REMOVE PILONIDAL CYST, SIMPLE REMOVE TONSILS & ADENOIDS, AGE 12+ REPAIR SHOULDER CUFF AVULSION Left 06/19/2013 Dr Cortez REPAIR SHOULDER CUFF AVULSION Left 01/11/2014 revision - Dr Cortez Review of patient's allergies indicates: No Known Allergies Family History Problem Relation Name Age of Onset Cancer Mother Liver, Pancreatic Glaucoma Father age 82 Cancer Father 86 prostate -diag sp bboi-RC-sset to bone Cancer Sister Rachana 66 colon with mets Diabetes Sister Rachana Hypertension Sister Rachana Cancer Brother Kayden 75 prostate No Known Problems Brother Dave Social History Tobacco Use Smoking status: Former Current packs/day: 0.00 Average packs/day: 1 pack/day for 10.0 years (10.0 ttl pk-yrs) Types: Cigarettes Start date: 04/25/1985 Quit date: 04/25/1995 Years since quittin.0 Smokeless tobacco: Never Vaping Use Vaping status: Never Used Substance Use Topics Alcohol use: Yes Comment: [facility] Drug use: Never OBJECTIVE: BP 118/80 | Pulse 76 | Temp 98.5 F (36.9 C) | Resp 18 | Ht 5' 10" (1.778 m) | Wt (!) 329 lb 9.6oz (149.5 kg) | BMI 47.29 kg/m | BSA 2.72 m PHYSICAL EXAM: General: alert, healthy, no distress, well nourished and well developed, morbid obesity+ Head: Normocephalic, atraumatic Eye Exam: PERRLA, EOMI, Conjunctiva are pink and non-injected, sclera clear Ears: External ears normal Nose: no mucosal erythema, no mucosal edema, no purulent discharge Oropharynx: no exudate and no erythema Neck: supple, no adenopathy, no JVD, thyroid normal size, non-tender, without nodularity Lymph: No palpable lymphadenopathy. Heart: regular Rhythm and rate, no murmurs. Lungs: lungs clear to auscultation Abdomen: soft, non-tender, normal bowel sounds, no masses or organomegaly, no bruits Extremities: no edema, no clubbing, no cyanosis Neuro Exam: alert & oriented x 3 with fluent speech, no focal motor deficits, gait not tested Skin: skin color, texture, turgor are normal, no rashes ASSESSMENT/PLAN: Preoperative general physical examination (Primary) Spinal stenosis of lumbar region with neurogenic claudication Facet arthritis of lumbar region HTN, goal below 130/80 - BASIC METABOLIC PANEL; Future; Expected date: 11/12/2024 Type 2 diabetes, HbA1c goal < 7% ([facility]) - HEMOGLOBIN A1C; Future; Expected date: 11/12/2024 - MAGNESIUM; Future; Expected date: 11/12/2024 - VITAMIN B12; Future; Expected date: 11/12/2024 Dyslipidemia, goal LDL below 100 - ALT; Future; Expected date: 11/12/2024 - LIPID PANEL WITH DIRECT LDL IF TG IS HIGH; Future; Expected date: 11/12/2024 DELMIS on CPAP Nocturnal hypoxemia due to obesity Body mass index (BMI) of 45.0 to 49.9 in adult ([facility]) Screening for prostate cancer - PSA; Future; Expected date: 11/12/2024 FH: prostate cancer - PSA; Future; Expected date: 11/12/2024 Encounter for long-term (current) use of medications - MAGNESIUM; Future; Expected date: 11/12/2024 - VITAMIN B12; Future; Expected date: 11/12/2024 Patient is at low risk For perioperative cardiac event and may undergo the proposed surgery under noninvasive cardiac monitoring. Needs to be monitored for hypoxia postoperatively and use CPAP. NSAID is on hold since he is off work Ozempic on hold preop, LD 05/13/24, resume post-op To take metoprolol morning of surgery with sip of water, other BP meds maybe ok to take based on timing of surgery and check with pre-anesthesia 40 min total time spent with patient, time spent reviewing subspecialty notes, diagnostic studies done, follow-up orders/medication refills,over 1/2 time spent in counseling, coordinating care. Follow Up: Return in about 1 month (around 06/15/2024), or if symptoms worsen or fail to improve, for Return with Physician. | For: Return with Physician | Check-out note: Postop Cc - referring provider.. (This note was completed using the dictation program Fluency Direct. As such, there may be misspellings, word substitutions, or other variations that should not change the essence of the clinical content of this encounter note. If there is need for further clarification, please direct questions to the provider listed above.) Patient and / caregiver verbalize understanding of above instructions and agrees with plan of care. Christa Valencia MD 05/15/2024 documented in this encounter Nursing Notes * Marlen Wang LPN - 05/15/2024 4:15 PM EST The patient has been properly identified by confirmation of name and date of . Chief Complaint Patient presents with pre-op exam documented in this encounter Plan of Treatment Upcoming Encounters Date Type Department Care Team (Late st Contact Info) Description 06/27/2024 5:00 PM EST Office Visit General Internal Medicine [facility] [address] [facility] [place] [address] Christa [facility] MD [address] [facility] [address] 08/06/2024 2:30 PM EDT PulmDiagnostic Pulmonary Function Lab Marcelo Jones [address] [address] [address], [address] [place] [address] 08/14/2024 3:00 PM EDT Office Visit Pulmonary Medicine Marcelo Jones [address] [phone] Davin Gallegos MD [address] [place] [address] Scheduled Orders Name Type Priority Associated Diagnoses Orde r Schedule PSA Lab Routine Screening for prostate cancer FH: prostate cancer Expected: 11/12/2024 (Approximate), Expires: 05/15/2025 ALT Lab Routine Dyslipidemia, goal LDL below 100 Expected: 11/12/2024 (Approximate), Expires: 05/15/2025 BASIC METABOLIC PANEL Lab Routine HTN, goal below 130/80 Expected: 11/12/2024 (Approximate), Expires: 05/15/2025 LIPID PANEL WITH DIRECT LDL IF TG IS HIGH Lab Routine Dyslipidemia, goal LDL below 100 Expected: 11/12/2024 (Approximate), Expires: 05/15/2025 HEMOGLOBIN A1C Lab Routine Type 2 diabetes, HbA1c goal < 7% (HCC) Expected: 11/12/2024 (Approximate), Expires: 05/15/2025 MAGNESIUM Lab Routine Type 2 diabetes, HbA1c goal < 7% (HCC) Encounter for long-term (current) use of medications Expected: 11/12/2024 (Approximate), Expires: 05/15/2025 VITAMIN B12 Lab Routine Type 2 diabetes, HbA1c goal < 7% (HCC) Encounter for long-term (current) use of medications Expected: 11/12/2024 (Approximate), Expires: 05/15/2025 Scheduled Procedures Name Priority Associated Diagnoses Date/Ti me COLONOSCOPY FLEXIBLE PROXIMA L DIAGNOSTIC Recall History of colon polyps Family history of colon cancer Health Maintenance Due Date Last Done Comments HIV Screening 1974 Hepatitis C Screening 1977 Cologuard 2004 Sigmoidoscopy 2004 Fecal Occult Blood Test 07/23/2010 07/23/2009, 10/03 COVID-19 Vaccine ( season) 2023 03/20/2021, 02/27/2021 Depression Screening 03/29/2024 03/29/2023 HbA1c 11/08/2024 05/11/2024, 11/24, 09/20/2023, Additional history exists Colonoscopy 11/25/2024 11/25/2021, 11/23, 09/30/2010 Colorectal Cancer Screening 11/25/2024 Diabetic Eye Exam 12/20/2024 12/21/2023, , 07/20/2021, Additional history exists Diabetic Foot Exam 12/20/2024 12/21/2023, 01/06/2022 Albumin/Creatinine Ratio 05/11/2025 025, 09/20/2023, 07/14/2022, Additional history exists GFR 05/11/2025 05/11/2024, 1210/2023, 09/20/2023, Additional history exists DTap/Tdap Vaccines (3 - Td or Tdap) 10/24/2028 10/24/2018, 09/23/2008 Zoster Vaccines Completed 10/18/2019, 04/17/2019 RETIRED - COLONOSCOPY-EVERY 5 YRS AGES 18-100 Discontinued 11/25/2021, 12/03/2015, 09/30/2010 Pneumococcal Vaccine: 50+ Years Completed 01/06/2022 Influenza Vaccine (FLU shot) Completed 01/05/2024, 03/07/2023, 01/06/2022, Additional history exists HPV (Gardasil) Vaccine Aged Out No lo nger eligible based on patient's age to complete this topic Hepatitis B Vaccine Aged Out No longe r eligible based on patient's age to complete this topic MENINGOCOCCAL (MENACTRA/MENVEO) Aged Out No longer eligible based on patient's age to complete this topic documented as of this encounter Medical Devices Implanted Type Area Frozen Pie Maker Device Identifier Shelf Expiration Date Model / Serial / Lot Patch Hernia Med [id number] - [id number] Implanted:Qty: 1 on 06/07/2016 by Kirsten Romero DO at OR [facility] N/A: Abdomen CR BARD : DAVOL 06/22/2019 [id number] / / [id number] Cath Thermodilution 6fr - [id number] Implanted:Qty: 1 on 08/19/2021 by Zo Kelly MD at [facility] [employer] VIVIANA [id number] 07/09/2023 [id number] / / [id number] documented as of this encounter Visit Diagnoses Diagnosis Preoperative general physical examination- Primary Other specified pre-operative examination Spinal stenosis of lumbar region with neurogenic claudication Spinal stenosis, lumbar region, with neurogenic claudication Facet arthritis of lumbar region Lumbosacral spondylosis without myelopathy HTN, goal below 130/80 Unspecified essential hypertension Type 2 diabetes, HbA1c goal < 7% ([facility]) Type II or unspecified type diabetes mellitus without mention of complication, not stated as uncontrolled Dyslipidemia, goal LDL below 100 Other and unspecified hyperlipidemia DELMIS on CPAP Obstructive sleep apnea (adult) (pediatric) Nocturnal hypoxemia due to obesity Obesity, unspecified Body mass index (BMI) of 45.0 to 49.9 in adult (HCC) Screening for prostate cancer Special screening for malignant neoplasm of prostate FH: prostate cancer Family history of malignant neoplasm of prostate Encounter for long-term (current) use of medications Encounter for long-term (current) use of other medications documented in this encounter Advance Directives * Full Code (Latest Code Status on File) Date Activated Date Inactivated Comments 10/04/2016 10:17 PM 10/06/2016 5:48 PM This order reflects the patients wishes and were consensually agreed upon. Question Answer Comments Discussion of Advance Directives occurred with: Not Discussed Does the patient have a Living Will? No Does the patient have Health Care Power of Attor dandy? No * Full Code Date Activated Date Inactivated Comments 06/07/2016 12:08 PM 06/07/2016 9:50 PM This order reflects the patients wishes and were consensually agreed upon. Question Answer Comments Discussion of Advance Directives occurred with: Not Discussed Does the patient have a Living Will? No Does the patient have Health Care Power of Attor dandy? No * Full Code Date Activated Date Inactivated Comments 11/30/2014 3:03 PM 12/01/2014 1:48 AM This order ref lects the patients wishes and were consensually agreed upon. * Full Code Date Activated Date Inactivated Comments 11/30/2014 12:22 AM 11/30/2014 3:03 PM . Question Answer Comments Discussion of Advance Directives occurred with: Not Discussed Care Teams Shoe Associate Relationship Specialty Start Date End Date Christa Valencia MD [address] [place] [address] PCP - General Internal Medicine 11/25/15 documented as of this encounter
--- OUTSIDE RECORDS SUMMARY | 2024-05-25 07:19 | External Medical Summary ---
Author Name Unknown Address Unknown Organization [id number]:LABORATORY [facility] - [facility] [address] [facility] [place] [address] Laboratory Report Ordering Provider Test Date Status SHER ORDAZ 05/11/2024 15:44:13 Final Observation Date Value Abnormality Reference (Units ) Status Albumin 05/11/2024 15:44:13 4.5 3.8-5.0 (g/dL) Final AST (Aspartate aminotransferase) 05/11/2024 15:44:13 18 10-50 (U/L) Final Results may be falsely eleva nelia due to hemolysis. Alk Phos 05/11/2024 15:44:13 97 35-130 (U/ L) Final ALT (Alanine aminotransferase) 05/11/2024 15:44:13 25 10-50 (U/L) Final Bilirubin, Total 05/11/2024 15:44:13 0.4 <=1 .2 (mg/dL) Final Bilirubin, Direct 05/11/2024 15:44:13 0.1 0. 0-0.3 (mg/dL) Final Result may be falsely decrea sed due to hemolysis. Protein 05/11/2024 15:44:13 7.1 6.0-8.3 (g /dL) Final Performing Location LABORATORY [facility] - [address] [place] [address]
--- OUTSIDE RECORDS SUMMARY | 2024-05-25 07:19 | External Medical Summary ---
Author Name Unknown Address Unknown Organization [id number]:[facility] - [address] [facility] [address] Laboratory Report Ordering Provider Test Date Status SHER ORDAZ 05/11/2024 15:44:13 Final Observation Date Value Abnormality Reference (Units ) Status Triglyceride 05/11/2024 15:44:13 267 Above high normal <=174 (mg/dL) Final Triglyceride Reference Range s (mg/dL):
<150 Acceptable
150-174 Borderline high
175-499 High
>=500 Very high Cholesterol 05/11/2024 15:44:13 160 <200 (mg /dL) Final Total Cholesterol Reference Ranges (mg/dL):
<200 Desirable
200-239 Borderline high
>=240 High HDL 05/11/2024 15:44:13 35 Below low normal >39 (mg/dL) Final HDL Cholesterol Reference Ra nges (mg/dL):
>=60 High (Desirable)
<50 Low (Undesirable) For Females
<40 Low (Undesirable) For Males NON-HDL CHOLESTEROL 05/11/2024 15:44:13 125 <=159 (mg/dL) Final Non-HDL Cholesterol Referenc e Range (mg/dL):
<100 Target level for high risk ASCVD patient
<130 Optimal for general population
130-159 Near optimal for general population
160-189 Borderline High
190-219 High
>=220 Very High Performing Location [facility]ORY [facility] - [address] [facility] [address]
--- OUTSIDE RECORDS SUMMARY | 2024-05-25 07:19 | External Medical Summary | Summary of Care ---
Author Name Unknown Organization [facility] Address [address] [place] [address] Phone [phone] Care Team Providers Care Certified Green Building Engineer Name Role Phone Christa Valencia MD Primary Care Provider [phone] Reason for Visit * Reason Comments Outpatient Testing Encounter Details Date Type Department Care Team (Late st Contact Info) Description 05/11/2024 4:10 PM EST Laboratory Laboratory, [facility] [address] [place] [phone] [facility], Lab [address] [place] [address] Type 2 diabetes mellitus with hemoglobin A1c goal of less than 7.0% ([facility]); HTN, goal below 140/90; DELMIS on CPAP; Dyslipidemia, goal LDL below 100 Allergies No known active allergiesdocumented as of this encounter (statuses as of 05/11/2024) Medications B-12 1000 MCG Oral TabletIndications: Prediabetes,Low [...] 5 mL 5 07/02/19 22 Active Nystatin 935793 UNIT/GM External CreamIndications:C andidiasis, intertriginous,Bod y mass index (BMI) of 45.0 to 49.9 in adult ([facility]) Apply topically to affected area 2 times a day . Till better. 60 g 1 12/16/19 22 Active Additional Information Patient taking differently:TopicalPRN, Other, rash, Till better., Reported on 03/29/2023 CPAP every night at bedtime . Auto [...] Active Additional Information Patient not taking.Reported on 06/06/2023 Ondansetron HCl 4 MG Oral TabletIndications: Nausea [...] hemoglobin A1c goal of less than 7.0% ([facility]),Dyslipidemia , goal LDL below 100,Atherosclerosi s Take 1 Tablet by mouth in the morning. 90 Tablet 3 06/05/20 24 Active Albuterol Sulfate HFA 108 (90 [...] WORK 30 Tablet 5 04/09/20 24 Active Omeprazole 20 MG Oral Capsule Delayed Release (PriLOSEC)Indicati ons:Other chronic gastritis without hemorrhage,Primary osteoarthritis of both knees TAKE BY MOUTH 1 CAPSULE IN THE MORNING] 90 Capsule 2 04/16/20 24 Active documented as of this encounter (statuses as of 05/11/2024) Active Problems Problem Noted Date Diagnosed Date Vitamin D deficiency 09/28/2023 Body mass index [...] Overview (01/06/2022): Sleep study 10/09--sev OSAS--03/11-Cpap tit [id number]-Rzru-XQH 10-20 cmH2O with heated humidity with a [...] age 65 History of anal fissures 11/13/2014 Family history of malignant neoplasm of prostate 05/16/2014 Overview (05/16/2014): Father--diag age 86- -diag sp yrbp-IE-yobx to bone Calcaneal spur of left foot 11/08/2013 Overview (11/08/2013): Xray---06/08- mod size S/P complete repair of rotator cuff 05/08/2013 Overview (01/25/2014): 01/11/14 Dr Cortez diagnostic arthroscopy w/ debridement, distal clavicle resection & revision rotator cuff repair Arthr SG --06/19/13-[facility] Dr Cortez 06/07/13 MRI Lt Shoulder: full thickness rotator cuff effusion subacromial subdeltoid Mild ac jt xr 04/06 Glaucoma suspect 01/25/2013 Overview (06/03/2016): Fu [place] PLANTAR FIBROMATOSIS--RT 03/18/2010 Overview (09/23/2010): 03/04-Rt moik-cf-dibat pl spur, more broad-based insertional spur of the Achilles tendon on the posterior aspect of the calcaneus. Hyperplastic polyp of sigmoid colon 07/04/2009 Overview (12/16/2015): 12/08-[facility] csope --5 mm SC-P-> HPP (rpt 5 [...] as of this encounter (statuses as of 05/11/2024) Resolved Problems Problem Noted Date Diagnosed Date [...] per HTN protocol #16. TEAR MENISCUS NEC, [id number] 02/25/2009 01/06/2022 Overview (03/17/2009): Ill37--fubf Michel 03/07 --given cortisone in the left knee [...] as of this encounter (statuses as of 05/11/2024) Immunizations Name Administration Dates Next Due COVID-19 mRNA, LNP-s, No Pre serve, 2-Dose Series (Pfizer) 03/20/2021,02/27/2021 H1N1 2009 Influenza, IM 05/23/2009 Pneumococcal Conjugate Vacci ne, 20-valent ([id number]) 01/06/2022 Seasonal Influenza Vac., MDV , IM, [...] AM EDT documented as of this encounter Functional Status * Are you [...] Radha Thapa RN documented in this encounter Plan of Treatment Upcoming Encounters Date Type Department Care Team (Late st Contact Info) Description 05/15/2024 4:20 PM EST Office Visit General Internal Medicine [facility] [address] [place] [address] Christa Valencia MD [address] [facility] [place] [address] 08/06/2024 2:30 PM EDT PulmDiagnostic Pulmonary Function Lab Marcelo Jones [address] [address] [address], [address] [place] [address] 08/14/2024 3:00 PM EDT Office Visit Pulmonary Medicine Marcelo Jones [address] [phone] Davin Gallegos MD [address] [address] Pending Results Name Type Priority Associated Diagnoses Date /Time BASIC METABOLIC PANEL Lab Routine Type 2 diabetes mellitus with hemoglobin A1c goal of less than 7.0% (HCC) HTN, goal below 140/90 DELMIS on CPAP 05/11/2024 3:44 PM EST HEMOGLOBIN A1C Lab Routine Type 2 diabetes mellitus with hemoglobin A1c goal of less than 7.0% (HCC) 05/11/2024 3:44 PM EST LIPID PANEL WITH DIRECT LDL IF TG IS HIGH Lab Routine Type 2 diabetes mellitus with hemoglobin A1c goal of less than 7.0% (HCC) Dyslipidemia, goal LDL below 100 05/11/2024 3:44 PM EST ALBUMIN / CREATININE RATIO, URINE Lab Routine Type 2 diabetes mellitus with hemoglobin A1c goal of less than 7.0% (HCC) 05/11/2024 3:44 PM EST HEPATIC FUNCTION PANEL Lab Routine Type 2 diabetes mellitus with hemoglobin A1c goal of less than 7.0% (HCC) 05/11/2024 3:44 PM EST Scheduled Procedures Name Priority Associated Diagnoses Date/Ti me COLONOSCOPY FLEXIBLE PROXIMA L DIAGNOSTIC Recall History of colon polyps Family history of colon cancer Health Maintenance Due Date Last Done Comments HIV Screening 1974 Hepatitis C Screening 1977 Cologuard 2004 Sigmoidoscopy 2004 Fecal Occult Blood Test 07/23/2010 07/23/2009, 10/03 COVID-19 Vaccine ( season) 2023 03/20/2021, 02/27/2021 Depression Screening 03/29/2024 03/29/2023 HbA1c 06/22/2024 12/21/2023, 08/24, 03/22/2023, Additional history exists Albumin/Creatinine Ratio 09/19/2024 024, 07/14/2022, 07/01/2021, Additional history exists Colonoscopy 11/25/2024 11/25/2021, 11/23, 09/30/2010 Colorectal Cancer Screening 11/25/2024 Diabetic Eye Exam 12/20/2024 12/21/2023, , 07/20/2021, Additional history exists Diabetic Foot Exam 12/20/2024 12/21/2023, 01/06/2022 GFR 03/31/2025 03/31/2024, 08/24, 03/22/2023, Additional history exists DTap/Tdap Vaccines (3 - [...] this encounter Medical Devices Implanted Type Area Automatic Blocker Device Identifier Shelf Expiration Date Model / Serial / Lot Patch Hernia Med [id number] - [id number] Implanted:Qty: 1 on 06/07/2016 by Kirsten Romero DO at OR [facility] N/A: Abdomen CR BARD : DAVOL 06/22/2019 [id number] / / [id number] Cath Thermodilution 6fr - [id number] Implanted:Qty: 1 on 08/19/2021 by Zo Kelly MD at [facility] [place] [employer] VIVIANA [id number] 07/09/2023 [id number] / / [id number] documented as of this encounter Visit Diagnoses Diagnosis Type 2 diabetes mellitus with hemoglobin A1c goal of less than 7.0% (HCC) HTN, goal below 140/90 Unspecified essential hypertension DELMIS on CPAP Obstructive sleep apnea (adult) (pediatric) Dyslipidemia, goal LDL below 100 Other and unspecified hyperlipidemia documented in this encounter Advance Directives * [...] Directives occurred with: Not Discussed Care Teams Certified Green Building Engineer Relationship Specialty Start Date End Date Christa Valencia MD [address] [place] [address] PCP - General Internal Medicine 11/25/15 documented as of this encounter
--- OUTSIDE RECORDS SUMMARY | 2024-05-25 07:19 | External Medical Summary ---
Author Name Unknown Address Unknown Organization K01:[facility]ATORY [facility] [place] - [address] [facility] [address] [place] [place] [address] Laboratory Report Ordering Provider Test Date Status SHER ORDAZ 05/11/2024 15:44:13 Final Observation Date Value Abnormality Reference (Units ) Status BUN 05/11/2024 15:44:13 10 6-20 (mg/dL) Final Creatinine 05/11/2024 15:44:13 0.9 0.6-1.2 (mg/dL) Final Glomerular filtration rate/1.73 sq M.predicted [Volume Rate/Area] in Serum, Plasma or Blood by Creatinine-based formula (CKD-EPI) 05/11/2024 15:44:13 >90 >=60 (mL/min) Final eGFR is calculated based on the CKD-EPI 2020 equation. Sodium 05/11/2024 15:44:13 139 135-146 (m mol/L) Final Potassium 05/11/2024 15:44:13 4.2 3.5-5.1 (m mol/L) Final Cl 05/11/2024 15:44:13 99 98-107 (mm ol/L) Final CO2 05/11/2024 15:44:13 26 22-32 (mmo l/L) Final Anion gap 05/11/2024 15:44:13 14 7-15 (mmol /L) Final Glucose 05/11/2024 15:44:13 104 70-120 (mg /dL) Final Calcium 05/11/2024 15:44:13 9.8 8.4-10.2 ( mg/dL) Final Performing Location LAB[facility]ATORY [facility] [place] - [address] [place] [address]
--- OUTSIDE RECORDS SUMMARY | 2024-05-25 07:19 | External Medical Summary ---
Author Name Unknown Address Unknown Organization [id number]:LABORATORY [facility] [place] - [address] [place] [address] Laboratory Report Ordering Provider Test Date Status SHER ORDAZ 05/11/2024 15:44:13 Final Observation Date Value Abnormality Reference (Units ) Status LDL, (direct) 05/11/2024 15:44:13 93 <=129 (mg/dL) Final LDL Cholesterol Reference Ra nges (mg/dL):
<70 Target level for high risk ASCVD patient
<100 Optimal for general population
100-129 Near optimal for general population
130-159 Borderline high
160-189 High
>=190 Very high Performing Location LABORATORY [facility] - [address] [place] [address]
--- OUTSIDE RECORDS SUMMARY | 2024-05-25 07:19 | External Medical Summary ---
Author Name Unknown Address Unknown Organization [id number]:LABORATORY [facility] [place] - [facility] [address] [place] [address] Laboratory Report Ordering Provider Test Date Status SHER ORDAZ 05/11/2024 15:44:13 Final Normal: <30 mg/g creatinine< br/>High: 30-300 mg/g creatinine
Very High: >300 mg/g creatinine
Nephrotic: >2200 mg/g creatinine Observation Date Value Abnormality Reference (Units ) Status Albumin, Urine 05/11/2024 15:44:13 <1.20 (mg/dL) Final Creatinine, Urine 05/11/2024 15:44:13 80 (mg/dL) Final Albumin/Creatinine [Mass Ratio] in Urine 05/11/2024 15:44:13 <15 <30 (mg/g Creat) Final Performing Location LABORATORY [facility] [place] - [address] [place] [address]
--- OUTSIDE RECORDS SUMMARY | 2024-05-25 07:19 | External Medical Summary ---
Author Name Unknown Address Unknown Organization [id number]:LABORATORY [facility] [place] - [address] [facility] [address] Laboratory Report Ordering Provider Test Date Status SHER ORDAZ 05/11/2024 15:44:13 Final Observation Date Value Abnormality Reference (Units ) Status HbA1C 05/11/2024 15:44:13 6.9 Above high normal 4. 0-5.6 (%) Final The use of HbA1c to monitor glycemic status is based on normal hemoglobin and HbA composition. This test should not be used in patients with abnormal hemoglobin that affects the half life of the red blood cell or the in vivo glycation rates. Glucose, estimated average 05/11/2024 15:44:13 151 Above high normal <126 (mg/dL) Kendall almonte Performing Location LABORATORY [facility] [place] - [address] [facility] [address] [facility] [address]
[2024-05-25] MEDS ORDERED: PHENYLEPHRINE HCL 10 MG/ML VIAL ONE (07:20)
--- NOTE | 2024-05-25 07:21 | History & Physical Bridge Note ---
Date of Service May 25, 2024 History & Physical Bridge Note I have examined the patient, reviewed the History & Physical and in the interval since the performance of the History & Physical I have noted the following changes of clinical significance: no changes noted
[2024-05-25] MEDS ORDERED: DEXAMETHASONE SOD INJ 4 MG/ML VIAL ONE (07:25)
[2024-05-25] MEDS ORDERED: HYDROmorphone INJ 2 MG/ML SYR/VIAL IV PRN (07:28)
[2024-05-25] MEDS ORDERED: ePHEDrine sulfate 50 MG/ML AMP IV PRN (07:28)
[2024-05-25] MEDS ORDERED: PROMETHAZINE HCL 6.25 MG in SODIUM CHLORIDE 0.9% 50 ML IV PRN (07:28)
[2024-05-25] MEDS ORDERED: ATROPINE SULFATE 0.1 MG/ML 10ML SYR IV PRN (07:28)
[2024-05-25] MEDS ORDERED: ceFAZolin 330 MG/ML 1 GM VIAL ONE ×4 (07:50→12:03)
[2024-05-25] MEDS: ceFAZolin 2000MG 2,000 MG/15 ML SYR IV SCH ×2 (08:15→20:29)
[2024-05-25] MEDS: ceFAZolin 1000MG 1,000 MG/7.5 ML SYR IV ONE (08:15)
[2024-05-25] MEDS ORDERED: GLYCOPYRROLATE 0.2 MG/ML VIAL ONE (08:18)
[2024-05-25] MEDS ORDERED: ePHEDrine sulfate 50 MG/5 ML SYR ONE (08:21)
[2024-05-25] MEDS ORDERED: KETAMINE HCL 10MG/ML SYR ONE (09:29)
[2024-05-25] MEDS ORDERED: SUGAMMADEX SODIUM 200 MG/2 ML VIAL IV ONE (11:21)
[2024-05-25] MEDS ORDERED: ONDANSETRON INJ 2 MG/ML 2 ML VIAL ONE (11:21)
[2024-05-25] MEDS: FLOSEAL HEMOSTATIC MATRIX 10ML TOP ONE (12:05)
[2024-05-25] MEDS: VANCOMYCIN HCL 1000MG/20ML VIAL ONE (12:05)
--- NOTE | 2024-05-25 12:07 | Post Operative Brief Note ---
PG Immediate Post Op with CF Date of Surgery May 25, 2024 Pre & Post Diagnosis Operation Date: 05/25/24 07:30 Pre-Op Diagnosis: (1) Lumbar radiculopathy (2) Spondylolisthesis, lumbar region (3) Foraminal stenosis of lumbar region (4) Lumbar spondylosis Post-Op Diagnosis: (1) Lumbar radiculopathy (2) Spondylolisthesis, lumbar region (3) Foraminal stenosis of lumbar region (4) Lumbar spondylosis I identified the patient and participated in the time-out.: Yes Procedure Operation Date: 05/25/24 07:30 Actual Procedures p Left L3-L4 Extreme Lateral Interbody Fusion, L3-L4 Posterior Fusion, L3 Laminectomy, CT Navigation and Spinal Cord Monitoring(Not Applicable) - Fco Henry MD Surgeon Fco Henry MD [employer] Jayesh Witt PA-C Estimated Blood Loss 75 Findings Consistent with Post-Op Diagnosis Specimens Specimen Description: No specimen per surgeon Drains Samuel Drain (15fr) and Mandujano Catheter (Inserted prior to procedure by Kandy Greenfield RN without difficulty, clear yellow urine noted. To be discontinued at end of procedure.) Anesthesia Type General Disposition Disposition: Recovery Room
[2024-05-25] MEDS ORDERED: HYDROmorphone INJ 2 MG/ML SYR/VIAL ONE (12:10)
[2024-05-25] MEDS: ceFAZolin 3,000 MG in DEXTROSE 5% 50 ML IV ONE (12:13)
--- NOTE | 2024-05-25 12:16 | Operative Report ---
PG Post Operative Report Pre & Post Diagnosis Operation Date: 05/25/24 07:30 Pre-Op Diagnosis: (1) Lumbar radiculopathy (2) Spondylolisthesis, lumbar region (3) Foraminal stenosis of lumbar region (4) Lumbar spondylosis Post-Op Diagnosis: (1) Lumbar radiculopathy (2) Spondylolisthesis, lumbar region (3) Foraminal stenosis of lumbar region (4) Lumbar spondylosis I identified the patient and participated in the time-out.: Yes Procedure 1. L3-4 anterior lumbar interbody fusion via lateral approach (04860). 2. L3-4 interbody spacer placement with arthrodesis (54191). 3. L3-4 posterolateral fusion (83173). 4. L3-4 posterior instrumentation (17529). 5. L3-4 laminectomy with complete left facetectomy (67730). 6. Stereotactic computer-assisted (navigation) procedure; spinal (71625). 7. Local Autograft and allograft for spine fusion Surgeon Fco Henry MD Cell Phone Repair Technician Jayesh Witt PA-C Estimated Blood Loss 75 Findings Consistent with Post-Op Diagnosis Specimens No Drains Samuel Anesthesia Type General Complications none Disposition Disposition: Recovery Room Indications The patient continues to have severe symptoms that have been unresponsive to extensive conservative management. After discussing the benefits and risks of continued conservative management versus operative intervention, the patient elected to proceed with surgery. Description of Procedure Informed consent was obtained. In the preoperative holding area, the patient was marked with a marking pen. They were taken to the operating room and anesthesia was initiated. Neuromonitoring was utilized, including running electromyography and triggered electromyography. They patient was placed in a lateral position. All bony prominences were carefully padded. Antibiotics were administered. A timeout was performed. Under the guidance of fluoroscopy, a lateral approach was utilized. An incision was made directly lateral over the L3-4 disk space. Blunt dissection was completed into the retroperitoneal space. The psoas was bluntly cleared off. A dilator was placed under fluoroscopy at the junction of the posterior and middle third of the disk space. The dilator was carefully dissected through the psoas to dock on the disc space. Neuromonitoring revealed that there were no nerves adjacent to the dilator. A guidewire was placed into the disk space. Progressively larger dilators were inserted. Neuromonitoring was utilized with each dilator to ensure that no nerves were adjacent to the approach. An appropriately sized retractor was placed over the dilators. It was secured to the bed using a clamp. Neuromonitoring revealed no nerves adjacent to the retractor. It was gently opened a small amount. A ball tip probe attached to neuromonitoring was used to further confirm that there were no nerves in the visualized field or directly behind the retractor. Having cleared the field of nerves, an annulotomy was completed using a knife. A diskectomy was completed using curettes, rongeurs and pituitaries. The endplates were prepared. An appropriately sized interbody spacer was selected and implanted after being packed with BMP and DBM allograft material. The retractor was carefully removed and meticulous hemostasis was achieved. The fascia was closed using absorbable suture. The subcutaneous was closed using absorbable suture. Tissue sealant was used to close the skin. A sterile dressing was placed. The patient was then placed prone on a Sajan table for the posterior procedure. Their back was prepped and draped in typical sterile fashion. A timeout was performed again. A stereotactic frame was attached to the patient. Intraoperative O-arm CT (computed tomography) images were obtained for stereotactic navigation. A #10 blade was used to incise the skin. Bovie electrocautery was used to elevate the paraspinal musculature off of the laminae. Using a Kerrison rongeur, a laminectomy of L3 was completed. A partial superior laminectomy of L4 was completed. Ligamentum flavum between L3-4 was removed. There was noted to be facet hypertrophy at L3-4 and severe foraminal stenosis. This was causing significant lateral recess stenosis. Therefore, a complete left facetectomy was completed. The traversing nerve root was confirmed to be completely decompressed as well as the exiting nerve on the left. Using stereotactic assistance, pedicle screw tracts were created using an awl. The L3-4 facet joints were decorticated. Local autograft was packed posterolaterally to induce fusion. Next, utilizing stereotactic assistance, screws of appropriate length were placed into the pedicles of L4 and L3. Electromyography confirmed appropriate position. Rods were placed bilaterally. Set screws were placed and final tightened. A second intraoperative CT scan was then obtained to verify appropriate position of the hardware. The fascia, subcutaneous and cutaneous were closed in layers using suture. A sterile dressings was placed. At the end of case, all instrument and sponge counts were correct. The patient was awakened from anesthesia and taken to the PACU in stable condition. I attest to the content of the Intraoperative Record and any orders documented therein. Any exceptions are noted below.
[2024-05-25] MEDS: BUPIVACAINE 0.25% PF 30 ML VIAL ONE (12:21)
--- NOTE | 2024-05-25 14:01 | Fluoroscopy Report ---
FL lumbar spine 2-3V CLINICAL HISTORY: L3-L4 O-ARM AND REGULAR LOIDA COMPARISON STUDY: None FLUOROSCOPY TIME: 130 seconds FLUOROSCOPY IMAGES: 4 EXPOSURE DOSE: 170 mGy FINDINGS: Fluoroscopy was provided for lumbar spine surgery. IMPRESSION: Intraoperative fluoroscopy. ACT 112: Negative or not required by law. Electronically signed by: Haroon Mcdemrott M.D. 05/25/2024 2:00 PM
[2024-05-25] MEDS ORDERED: MAGNESIUM HYDROXIDE SUSP 30 ML UDC PO PRN (14:11)
[2024-05-25] MEDS ORDERED: PHARMACY GLYCEMIC MGMT CONSULT PRN (14:11)
[2024-05-25] MEDS ORDERED: POLYETHYLENE (MIRALAX) 17 GM PACK PO PRN (14:11)
[2024-05-25] MEDS ORDERED: PROMETHAZINE 12.5 MG/50.5 ML BAG IV PRN (14:11)
[2024-05-25] MEDS ORDERED: LORazepam 0.5 MG TAB PO PRN (14:11)
[2024-05-25] MEDS ORDERED: ACETAMINOPHEN 500 MG TAB PO PRN (14:11)
[2024-05-25] MEDS ORDERED: NALOXONE HCL 0.4 MG/1 ML VIAL/CARP IV PRN (14:11)
[2024-05-25] MEDS ORDERED: diphenhydrAMINE Capsule 25 MG CAP PO PRN (14:11)
[2024-05-25] MEDS ORDERED: DOCUSATE SODIUM/SENNA 50/8.6MG TAB PO PRN (14:11)
[2024-05-25] MEDS ORDERED: ONDANSETRON 4 MG OD TAB PO PRN (14:11)
[2024-05-25] MEDS ORDERED: FAMOTIDINE 20 MG TAB PO PRN (14:11)
[2024-05-25] MEDS ORDERED: DO NOT ADMINISTER PNEUMOCOCCAL VACCINE PRN (14:11)
[2024-05-25] MEDS ORDERED: VANCOMYCIN CONSULT ACTIVE PRN (14:11)
[2024-05-25] MEDS ORDERED: ALUMINUM/MAGNESIUM SUSP 30 ML UDC PO PRN (14:11)
[2024-05-25] MEDS ORDERED: bisacodyL 10 MG SUPP PR PRN (14:11)
[2024-05-25] MEDS ORDERED: ONDANSETRON INJ 2 MG/ML 2 ML VIAL IV PRN (14:11)
[2024-05-25] MEDS ORDERED: LORazepam 2 MG/1 ML VIAL IV PRN (14:11)
[2024-05-25] MEDS ORDERED: FLUTICASONE PROPIONATE NA SPR 16 GM BTL NAE PRN (14:11)
[2024-05-25] MEDS ORDERED: DO NOT ADMINISTER FLU VACCINE PRN (14:11)
[2024-05-25] MEDS ORDERED: ALBUTEROL HFA 8 GM INHALER INH PRN (14:11)
[2024-05-25] MEDS ORDERED: HYDROmorphone INJ 0.5 MG/0.5 ML SYR IV PRN (14:11)
[2024-05-25] MEDS ORDERED: SOD PHOSPHATE/SOD BIPHOSPHATE ENEMA 132 ML BTL PR PRN (14:11)
[2024-05-25] MEDS ORDERED: HYDROmorphone INJ 1 MG/ML SYRINGE IV PRN (14:11)
[2024-05-25] MEDS ORDERED: METOCLOPRAMIDE HCL INJ 5 MG/ML 2 ML VIAL IV PRN (14:11)
[2024-05-25] MEDS ORDERED: hydrOXYzine HCl 25 MG TAB PO PRN (14:11)
--- NOTE | 2024-05-25 14:15 | Anesthesiology Progress Note ---
Date of Service May 25, 2024 Anesthesia Post Procedure Vital Signs Vital Signs: Temp Pulse Resp BP Pulse Ox O2 Del Method O2 Flow Rate 05/25/24 14:00 92 H 16 154/83 H 94 Nasal Cannula 3 05/25/24 13:45 95 H 18 141/76 H 94 Nasal Cannula 3 05/25/24 13:35 36.7 C 92 H 20 154/80 H 94 Nasal Cannula 3 05/25/24 13:25 96 H 18 145/84 H 94 Nasal Cannula 3 05/25/24 13:15 101 H 18 139/90 94 Nasal Cannula 3 05/25/24 13:05 101 H 18 134/79 95 Nasal Cannula 3 05/25/24 12:57 36.1 C L 108 H 16 144/85 H 97 Oxymask 6 05/25/24 06:36 37.1 C 88 20 156/97 H 94 Room Air Transfer of Care Handoff Completed per policy Notes Mental Status: alert / awake / arousable and participated in evaluation Nausea / Vomiting: adequately controlled Pain: adequately controlled Airway Patency, RR, SpO2: stable & adequate BP & HR: stable & adequate Hydration State: stable & adequate Anesthetic Complications: no major complications apparent and Pt Satisfied with anesthetic care
[2024-05-25] MEDS ORDERED: GLUCOSE 40% GEL 15 GM TUBE PO PRN (14:45)
[2024-05-25] MEDS ORDERED: DEXTROSE 50% 50 ML SYRINGE IV PRN (14:45)
[2024-05-25] MEDS ORDERED: GLUCAGON FOR INJ 1 MG VIAL SQ PRN (14:45)
[2024-05-25] MEDS ORDERED: GLUCOSE 10 TAB/TUBE PO PRN (14:45)
[2024-05-25] MEDS ORDERED: CARBOHYDRATES FOR HYPOGLYCEMIA PO PRN (14:45)
--- NOTE | 2024-05-25 14:46 | Pharmacy Report ---
Pharmacy Glycemic Short Note 2 - Date of Service May 25, 2024 - Glycemic Short BSG Results (Last 24 hours): 05/25/24 06:32 POC Glucose 191 H OUTPATIENT ANTIDIABETIC REGIMEN: * Metformin XR 2 g PO PM * Ozempic 0.5 mg SC every Tuesday HbA1c: * 6.7% (05/04/24) ASSESSMENT: * 63 yo M admitted postoperatively on 05/25/24 following a spinal surgery. Pharmacy has been consulted to assist with inpatient glycemic management. Patient is a Type 2 diabetic as an outpatient. Please refer to outpatient regimen and most recent HbA1c above. * Preop BSG was 191 mg/dL. Did receive 8 mg of IV dexamethasone periop. No ongoing steroids ordered. T2DM diet ordered but unsure how tolerating at this time. * Will give a one time basal dose this afternoon to cover steroids given. Reassess basal in AM. * Novolog to be started based on weight/stress of 2. One time overnight check ordered for early AM tomorrow. PLAN FOR INPATIENT GLYCEMIC CONTROL: * Hold outpatient oral diabetes medications * Basal insulin * Lantus 20 units SC x 1 * Bolus insulin * NovoLog per scale ACHS or Q6hrs while NPO * Goal Range: Low 110 mg/dL - High 140 mg/dL * Correction Factor: 15 mg/dL/unit * Nutritional / Prandial insulin per carb ratio of 1 unit per 5 grams CHO consumed
[2024-05-25] MEDS: KETOROLAC 30 MG/ML VIAL IV SCH (15:08)
[2024-05-25] MEDS: GABAPENTIN 300 MG CAP PO SCH (15:09)
--- NOTE | 2024-05-25 15:47 | Hospitalist Consultation ---
Date of Consultation May 25, 2024 History of Present Illness Reason for Consultation: CAD, HTN, DM Requesting Physician: Dr. Henry Attending Physician: Fco Henry MD History of Present Illness Sukumar in a 63M with a PMHx of HTN, CAD, DM Allergies Allergy/AdvReac Type Severity Reaction Status Date / Time No Known Allergies Allergy Verified 05/25/24 06:30 Home Medications Medication Instructions Recorded Confirmed Type metformin 1,000 mg tablet 2,000 mg PO QPM #0 tabs 01/03/14 05/25/24 History atorvastatin 10 mg tablet 20 mg PO QPM #0 tabs 12/02/15 05/25/24 History fluticasone propionate 50 2 spray intranasal DAILY PRN 12/21/17 05/25/24 History mcg/actuation nasal Allergy Symptoms spray,suspension lisinopril 10 mg tablet 40 mg PO QAM 12/21/17 05/25/24 History omeprazole 20 mg capsule,delayed 20 mg PO QAM 12/21/17 05/25/24 History release polyethylene glycol 3350 17 gram 17 g PO DAILY PRN Constipation 12/21/17 05/25/24 History oral powder packet (Miralax) sennosides 8.6 mg-docusate sodium 2 tab PO BID PRN Constipation 12/21/17 05/25/24 History 50 mg tablet (Senna with Docusate Sodium) wheat dextrin 3 gram/3.5 gram oral 1 packet PO DAILY PRN Constipation 12/21/17 05/25/24 History powder packet (Benefiber Clear Sugar Free(dextrin)) albuterol sulfate 90 mcg/actuation 2 puff inhalation QID PRN Wheezing 11/19/21 05/25/24 History aerosol inhaler olopatadine 0.2 % eye drops 1 drp ophthalmic (eye) BID PRN 11/19/21 05/25/24 History Itching vitamin B12 1,000 mcg-folic acid 1 tab sublingual QAM 11/19/21 05/25/24 History 400 mcg sublingual tablet zolpidem 5 mg tablet (Ambien) 5 mg PO HS Sleep 11/19/21 05/25/24 History tramadol 50 mg tablet 50 mg PO Q6H PRN pain #15 tabs 04/03/24 05/25/24 Rx amlodipine 5 mg tablet 10 mg PO QAM 04/30/24 05/25/24 History cholecalciferol (vitamin D3) 125 125 mcg PO DAILY 04/30/24 05/25/24 History mcg (5,000 unit) tablet (Vitamin D3) fluticasone fur. 100 mcg-umeclid 1 inh inhalation QAM 04/30/24 05/25/24 History 62.5 mcg-vilant 25 mcg inhalat.powder (Trelegy Ellipta) gabapentin 300 mg capsule 300 mg PO TID 04/30/24 05/25/24 History loratadine 10 mg tablet (Claritin) 10 mg PO QAM 04/30/24 05/25/24 History metoprolol succinate 25 mg 12.5 mg PO QAM 04/30/24 05/25/24 History tablet,extended release 24 hr semaglutide 0.25 mg or 0.5 mg (2 0.5 mg subcut UD 04/30/24 05/25/24 History mg/3 mL) subcutaneous pen injector ([employer]) Patient History Medical History Acid reflux CAD (coronary artery disease) Mild nonobstructive CAD per 2021 cath History of COVID-19 06/2019- asymptomatic Hx of colonic polyps Hx of constipation Hx of shortness of breath s/p cardiac/pulmonary evaluation/workup- no definitive etiology found per patient No longer has issues since weight loss Reason for PRN inhaler Hyperlipidemia Hypertension Insomnia Lumbar radiculopathy Osteoarthritis Pre-diabetes Taking metformin Seasonal allergies Sleep apnea CPAP (compliant) Spondylolisthesis, lumbar region Thoracic aortic ectasia CTA Chest 10/2023: Ectasia of the ascending thoracic aorta measuring 43 mm, not significantly changed since prior exam Surgical History Amputation of right index finger Partial H/O umbilical hernia repair History of cholecystectomy (2016) History of repair of rotator cuff Left x2 History of tonsillectomy Hx of cardiac cath (2021) No stents Hx of colonoscopy with polypectomy Hx of wisdom tooth extraction Family History Sister Family hx of colon cancer BOWEL RESECTION Family history of diabetes mellitus Other Colorectal cancer Social History Smoking Status: Former smoker Tobacco Type: Cigarettes Smoking End Date: Quit 27 years ago; Second Hand Exposure: Yes (); Do You Dip or Chew Tobacco: No; Tobacco Cessation Education Requested by Patient: No Hx Alcohol Use: Yes Alcohol type: beer Hx Substance Use: No Preferred Language: Azerbaijani Communication Ability: Effective Geriatric Nursing Assistant Required: No Beliefs That Will Affect Care: None Current Living Situation: Spouse Other Information That Helps Us Care for You: No Feels Safe at Home: Yes Safety Concerns: Feels Safe At This Time Assistive Devices: CPAP Results & Data Results & Data Vital Signs (Past 12 Hours) Vital Signs Temp Pulse Pulse Resp BP Pulse Ox O2 Del Method 05/25/24 15:13 98.1 F 102 H 17 146/83 H 94 Nasal Cannula 05/25/24 14:41 93 H 16 134/78 93 Nasal Cannula 05/25/24 14:25 Nasal Cannula 05/25/24 14:17 98.2 F 90 16 135/76 94 Nasal Cannula 05/25/24 14:00 92 H 16 154/83 H 94 Nasal Cannula 05/25/24 13:45 95 H 18 141/76 H 94 Nasal Cannula 05/25/24 13:35 98.1 F 92 H 20 154/80 H 94 Nasal Cannula 05/25/24 13:25 96 H 18 145/84 H 94 Nasal Cannula 05/25/24 13:15 101 H 18 139/90 94 Nasal Cannula 05/25/24 13:05 101 H 18 134/79 95 Nasal Cannula 05/25/24 12:57 97.0 F L 108 H 16 144/85 H 97 Oxymask 05/25/24 06:36 98.8 F 88 20 156/97 H 94 Room Air O2 Flow Rate 05/25/24 15:13 2 05/25/24 14:41 2 05/25/24 14:25 2 05/25/24 14:17 2 05/25/24 14:00 3 05/25/24 13:45 3 05/25/24 13:35 3 05/25/24 13:25 3 05/25/24 13:15 3 05/25/24 13:05 3 05/25/24 12:57 6 05/25/24 06:36 PG Care Time/CCT Total # of Minutes Spent Total Time Spent with Patient: Total time spent is greater than 50% in coordination of care (as documented) at patient's floor/unit and/or counseling patient: Coding
--- NOTE | 2024-05-25 16:07 | Hospitalist Consultation ---
Date of Consultation May 25, 2024 Assessment & Plan (1) Lumbar radiculopathy: (2) Spondylolisthesis, lumbar region: (3) Foraminal stenosis of lumbar region: - POD # [address] Henry - Pain management, bowel regimen and DVT ppx per the primary team - PT/OT consults, pt is planning on outpatient therapy - Follow am CBC to monitor for acute blood loss, last hgb of 16 on 04/03/24 (4) CAD (coronary artery disease): (5) Thoracic aortic ectasia: (6) Hypertension: (7) Hyperlipidemia: - Cont home medications per home med rec - Amlodipine, lisinopril, metoprolol succinate (8) Sleep apnea: (9) Pre-diabetes: - pt is on metformin and ozempic inj weekly at home, will hold for now. He is noncompliant with metformin at home and forgets it some days. - ISS with accuchecks achs. last A1C 6.7 on 05/04/24 DVT ppx: teds, scds Lines: PIV x 1, LETICIA drain FEN/GI: Heart healthy/diabetic CODE: Full code Dispo: From home, likely to remain in the hospital x 1-2 days A total of 45 minutes were spent with greater than 50% of that time face to face with the patient, personally reviewing all current laboratories, imaging studies, past medication reconciliation, outpatient chart review, and discussion with specialists to collaborate care for the patient with attending. Please see attending documentation for corrections and/or additions. Thank you for involving us in the care of Mr. Harper. If you have any questions or concerns please do not hesitate to call. At this time medicine will follow along. Supervising Physician Co-Signing Physician Notes Patient seen and examined independently. Discussed with over provider. He is awake alert oriented x 3. Denies pain or discomfort. Continue pain control Bowel regimen PT OT eval I have reviewed the advanced practitioner's documentation, and I agree with, and take responsibility for the plan of care I spent a total of 20 minutes coordinating, documenting, and providing care for this patient excluding time spent in the performance of separately billed services. All of the aforementioned completed while collaborating with the assigned advanced practitioner for a full treatment plan History of Present Illness Reason for Consultation: Medical Management Requesting Physician: Dr. Henry Attending Physician: Fco Henry MD History of Present Illness This is a 63-year-old male with PMHx of HTN, DM type II, mild aortic atherosclerotic calcification, syncope, osteoarthritis, moderate persistent asthma, chronic rhinitis, GERD, B12 deficiency, DELMIS on CPAP, proximal ascending thoracic aorta followed by cardiology, who presents to the hospital for elective lumbar decompression and spinal fusion by Dr. Henry on 05/25/2024.Patient is present here with his at bedside. He denies any current complaints, has good sensation down into his feet, no numbness/tingling or pain. He has tolerated p.o. intake without any difficulty, no nausea/vomiting. Last bowel movement was last evening. He took instructed medications this morning preoperatively. Notes that he uses metformin sometimes at home but is slightly forgetful, also uses Ozempic once weekly on Sundays. Allergies Allergy/AdvReac Type Severity Reaction Status Date / Time No Known Allergies Allergy Verified 05/25/24 06:30 Home Medications Medication Instructions Recorded Confirmed Type metformin 1,000 mg tablet 2,000 mg PO QPM #0 tabs 01/03/14 05/25/24 History atorvastatin 10 mg tablet 20 mg PO QPM #0 tabs 12/02/15 05/25/24 History fluticasone propionate 50 2 spray intranasal DAILY PRN 12/21/17 05/25/24 History mcg/actuation nasal Allergy Symptoms spray,suspension lisinopril 10 mg tablet 40 mg PO QAM 12/21/17 05/25/24 History omeprazole 20 mg capsule,delayed 20 mg PO QAM 12/21/17 05/25/24 History release polyethylene glycol 3350 17 gram 17 g PO DAILY PRN Constipation 12/21/17 05/25/24 History oral powder packet (Miralax) sennosides 8.6 mg-docusate sodium 2 tab PO BID PRN Constipation 12/21/17 05/25/24 History 50 mg tablet (Senna with Docusate Sodium) wheat dextrin 3 gram/3.5 gram oral 1 packet PO DAILY PRN Constipation 12/21/17 05/25/24 History powder packet (Benefiber Clear Sugar Free(dextrin)) albuterol sulfate 90 mcg/actuation 2 puff inhalation QID PRN Wheezing 11/19/21 05/25/24 History aerosol inhaler olopatadine 0.2 % eye drops 1 drp ophthalmic (eye) BID PRN 11/19/21 05/25/24 Hi story Itching vitamin B12 1,000 mcg-folic acid 1 tab sublingual QAM 11/19/21 05/25/24 History 400 mcg sublingual tablet zolpidem 5 mg tablet (Ambien) 5 mg PO HS Sleep 11/19/21 05/25/24 History tramadol 50 mg tablet 50 mg PO Q6H PRN pain #15 tabs 04/03/24 05/25/24 Rx amlodipine 5 mg tablet 10 mg PO QAM 04/30/24 05/25/24 History cholecalciferol (vitamin D3) 125 125 mcg PO DAILY 04/30/24 05/25/24 History mcg (5,000 unit) tablet (Vitamin D3) fluticasone fur. 100 mcg-umeclid 1 inh inhalation QAM 04/30/24 05/25/24 History 62.5 mcg-vilant 25 mcg inhalat.powder (Trelegy Ellipta) gabapentin 300 mg capsule 300 mg PO TID 04/30/24 05/25/24 History loratadine 10 mg tablet (Claritin) 10 mg PO QAM 04/30/24 05/25/24 History metoprolol succinate 25 mg 12.5 mg PO QAM 04/30/24 05/25/24 History tablet,extended release 24 hr semaglutide 0.25 mg or 0.5 mg (2 0.5 mg subcut UD 04/30/24 05/25/24 History mg/3 mL) subcutaneous pen injector (Ozempic) Patient History Medical History Acid reflux CAD (coronary artery disease) Mild nonobstructive CAD per 2021 cath History of COVID-19 06/2019- asymptomatic Hx of colonic polyps Hx of constipation Hx of shortness of breath s/p cardiac/pulmonary evaluation/workup- no definitive etiology found per patient No longer has issues since weight loss Reason for PRN inhaler Hyperlipidemia Hypertension Insomnia Lumbar radiculopathy Osteoarthritis Pre-diabetes Taking metformin Seasonal allergies Sleep apnea CPAP (compliant) Spondylolisthesis, lumbar region Thoracic aortic ectasia CTA Chest 10/2023: Ectasia of the ascending thoracic aorta measuring 43 mm, not significantly changed since prior exam Surgical History Amputation of right index finger Partial H/O umbilical hernia repair History of cholecystectomy (2016) History of repair of rotator cuff Left x2 History of tonsillectomy Hx of cardiac cath (2021) No stents Hx of colonoscopy with polypectomy Hx of wisdom tooth extraction Family History Sister Family hx of colon cancer BOWEL RESECTION Family history of diabetes mellitus Other Colorectal cancer Social History Smoking Status: Former smoker Tobacco Type: Cigarettes Smoking End Date: Quit 27 years ago; Second Hand Exposure: Yes (); Do You Dip or Chew Tobacco: No; Tobacco Cessation Education Requested by Patient: No Hx Alcohol Use: Yes Alcohol type: beer Hx Substance Use: No Preferred Language: Northern Irish Communication Ability: Effective [employer] Supervisor Required: No Beliefs That Will Affect Care: None Current Living Situation: Spouse Other Information That Helps Us Care for You: No Feels Safe at Home: Yes Safety Concerns: Feels Safe At This Time Assistive Devices: CPAP Review of Systems Review of Systems: Constitutional: No fever, sweats or chills Eyes: No diplopia, no worsening or blurred vision ENT: normal hearing, no trouble swallowing Respiratory: +CPAP at bedtime, no cough, sputum, dyspnea at rest or on exertion Cardiovascular: No chest pain, tightness or palpitations Abdomen: No pain, nausea, vomiting, diarrhea or constipation Musculoskeletal: No joint pain, calf pain, swelling Neurologic: No weakness, numbness/tingling, or balance problems Psychiatric: No anxiety or depression Skin: No rash or itch Physical Exam Physical Exam: General: awake, alert, no apparent distress, obese white male with BMI of 43 Head: Normocephalic, atraumatic ENT: PERRL, EOMI, no pharyngeal exudate, mucous membranes moist Chest: Clear to auscultation, on 2 L via NC, no adventitious breath sounds Cardiac: Regular rate and rhythm, no murmur, no JVD, normal peripheral pulses, good capillary refill Abdominal: NABS x 4 quadrants, soft, nondistended, nontender to palpation, no rebound or guarding Extremities: Normal inspection, no peripheral edema or erythema, calfs nontender to palpation Psych: Normal mood and affect Neuro: AAO x 3, strength intact bilaterally and rated 5/5, no motor deficits, speech is clear, no peripheral sensory deficits Results & Data Results & Data Vital Signs (Past 12 Hours) Vital Signs Temp Pulse Pulse Resp BP Pulse Ox O2 Del Method 05/25/24 15:13 36.7 C 102 H 17 146/83 H 94 Nasal Cannula 05/25/24 14:41 93 H 16 134/78 93 Nasal Cannula 05/25/24 14:25 Nasal Cannula 05/25/24 14:17 36.8 C 90 16 135/76 94 Nasal Cannula 05/25/24 14:00 92 H 16 154/83 H 94 Nasal Cannula 05/25/24 13:45 95 H 18 141/76 H 94 Nasal Cannula 05/25/24 13:35 36.7 C 92 H 20 154/80 H 94 Nasal Cannula 05/25/24 13:25 96 H 18 145/84 H 94 Nasal Cannula 05/25/24 13:15 101 H 18 139/90 94 Nasal Cannula 05/25/24 13:05 101 H 18 134/79 95 Nasal Cannula 05/25/24 12:57 36.1 C L 108 H 16 144/85 H 97 Oxymask 05/25/24 06:36 37.1 C 88 20 156/97 H 94 Room Air O2 Flow Rate 05/25/24 15:13 2 05/25/24 14:41 2 05/25/24 14:25 2 05/25/24 14:17 2 05/25/24 14:00 3 05/25/24 13:45 3 05/25/24 13:35 3 05/25/24 13:25 3 05/25/24 13:15 3 05/25/24 13:05 3 05/25/24 12:57 6 05/25/24 06:36 Laboratory Results 05/25/24 05/25/24 16:26 06:32 POC Glucose 240 H 191 H
[2024-05-25] MEDS: INSULIN ASPART PER UNIT CHARGE SC SCH (17:28)
[2024-05-25] MEDS: LANTUS PER UNIT CHARGE SC ONE (17:29)
[2024-05-25] MEDS: oxyCODONE/ACETAMINOPHEN 5mg/325mg TAB PO PRN (17:47)
[2024-05-25] MEDS: ATORVASTATIN 20 MG TAB PO SCH (20:28)
[2024-05-25] MEDS: VANCOMYCIN HCL 2,000 MG in SODIUM CHLORIDE 0.9% 500 ML IV SCH (20:29)
[2024-05-25] MEDS: DOCUSATE SODIUM/SENNA 50/8.6MG TAB PO SCH (20:33)
[2024-05-25] MEDS: ZOLPIDEM TARTRATE 5 MG TAB PO SCH (21:47)
[2024-05-26] MEDS: INSULIN ASPART PER UNIT CHARGE SC ONE (02:11)
[2024-05-26] MEDS: POLYETHYLENE (MIRALAX) 17 GM PACK PO SCH (05:58)
[2024-05-26 06:20] LABS: Basophils # (auto) 0.03 K/uL (0.00-0.20); Basophils % (auto) 0.2 %; Eosinophils # (auto) 0.05 K/uL (0.00-0.50); Eosinophils % (auto) 0.4 %; Hematocrit (blood only) 35.8 % (42.0-52.0); Hemoglobin 12.4 g/dl (14.0-18.0); Immature Granulocytes # (auto) 0.09 K/uL (0.01-0.20); Immature Granulocytes % (auto) 0.7 %; Lymphocytes # (auto) 1.64 K/uL (1.20-3.40); Lymphocytes % (auto) 13.1 %; Mean Corpuscular Hemoglobin 28.9 pg (25.0-34.0); Mean Corpuscular Hgb Conc 34.6 g/dL (32.0-36.0); Mean Corpuscular Volume 83.4 fL (80.0-100.0); Mean Platelet Volume 9.5 fL (9.4-12.4); Monocytes # (auto) 1.49 K/uL (0.11-0.59); Monocytes % (auto) 11.9 %; Neutrophils # (auto) 9.25 K/uL (1.40-6.50); Neutrophils % (auto) 73.7 %; Platelet Count 242 K/uL (130-400); RDW Coefficient of Variation 13.2 % (11.5-14.5); RDW Standard Deviation 39.5 fL (36.4-46.3); Red Blood Count 4.29 M/uL (4.70-6.10); White Blood Count 12.55 K/ul (4.8-10.8)
[2024-05-26 06:33] LABS: BUN Creatinine Ratio 15.6 (10-20); Calcium 9.2 mg/dl (8.6-10.3); Creatinine Clr Calc Pharmacy 117.7 ml/min; Potassium 3.7 mmol/L (3.5-5.1)
[2024-05-26] MEDS: LANTUS PER UNIT CHARGE SC SCH (08:32)
--- NOTE | 2024-05-26 09:07 | Orthopedic Progress Note ---
Date of Service May 26, 2024 Assessment & Plan (1) S/P lumbar fusion: WBAT, mobilize with PT pain control prn percocet and muscle relaxers diet as tolerated scds and ambulate drain- likely out tomorrow appreciate hospitalist assistance with medical comorbidities likely home tomorrow Subjective a/p XLIF, no issues overnight, leg pain is gone, incisional pain and some psoas soreness as expected. Review of Systems All systems reviewed & are unremarkable except as noted in HPI & below. Physical Exam drain functioning dressings c/d/i SILT L2-S1 Myotomes L2-S1 intact Results & Data Results & Data Laboratory Results . Diagnostic Findings . PG Care Time/CCT Total # of Minutes Spent Total Time Spent with Patient: Total time spent is greater than 50% in coordination of care (as documented) at patient's floor/unit and/or counseling patient: Coding Level of Care Code 75862 Post Operative Follow-Up Diagnoses S/P lumbar fusion Z98.1
--- NOTE | 2024-05-26 09:16 | XRay Report ---
EXAM: Radiographs of the Lumbosacral Spine 3 Views INDICATION: Postoperative imaging. TECHNIQUE: AP and lateral views were obtained with the patient standing. COMPARISON: No relevant prior studies available. FINDINGS: Limitations: None. Vertebrae: For the purposes of this dictation the most proximal nonrib-bearing vertebra is considered L1. There is lumbarization of the transitional first sacral segment. Intact well-seated posterior fusion hardware L4-L5. No fracture or subluxation. Mild spondylosis at all levels. There is hypertrophic change of the facets above and below the fusion. Sacrum/coccyx: No acute change noted. Disc spaces: Well-contained metallic intervertebral disc spacer expands the L4-L5 intervertebral disc space. There is narrowing L5-S1. Probable bony foraminal encroachment L5-S1. Soft tissues: Expected postoperative soft tissue swelling noted. There is a drain in place. IMPRESSION: Satisfactory appearance of posterior L4-L5 fusion hardware. ACT 112: Negative or not required by law. Electronically signed by Ly Smith 05-26-2024 09:16 AM
[2024-05-26] MEDS: FOLIC ACID 400 MCG TAB PO SCH (09:21)
[2024-05-26] MEDS: LORATADINE 10 MG TAB PO SCH (09:21)
[2024-05-26] MEDS: amLODIPine BESYLATE 5 MG TAB PO SCH (09:22)
[2024-05-26] MEDS: CYANOCOBALAMIN (B-12) 500 MCG TABLET PO SCH (09:22)
[2024-05-26] MEDS: PANTOprazole 40 MG TAB PO SCH (09:24)
[2024-05-26] MEDS: METOPROLOL SUCC 25MG EXT REL TAB PO SCH (09:24)
[2024-05-26] MEDS: CHOLECALCIFEROL 125 MCG (5,000 UNITS) TAB PO SCH (09:24)
[2024-05-26] MEDS: FLUTICASONE FUROATE 100MCG 14 PUFFS/INHALER INH SCH (09:28)
[2024-05-26] MEDS: UMECLIDINIUM/VILANTEROL 62.5/25MCG 7 PUFFS/INHALER INH SCH (09:28)
--- NOTE | 2024-05-26 09:28 | Hospitalist Progress Note ---
Date of Service May 26, 2024 Assessment & Plan (1) Lumbar radiculopathy: (2) Spondylolisthesis, lumbar region: (3) Foraminal stenosis of lumbar region: (4) CAD (coronary artery disease): (5) Thoracic aortic ectasia: (6) Hypertension: (7) Hyperlipidemia: (8) Sleep apnea: (9) Pre-diabetes: (10) Acute blood loss as cause of postoperative anemia: (11) Morbid obesity: Plan POD #1 L3-4 Extreme lateral interbody fusion, L3-4 Fusion, L3 Lami by Dr. Henry tolerated procedure well, EBL 75ml pt with acute blood loss anemia 2/2 expected surgical blood loss and likely dilutional component continue pain/wound management per ortho continue activity/therapy per ortho follow anemia with cbc Chronic medical conditions: CAD/HTN/HLD: continue statin, amlodipine, lisinopril, metoprolol - BP stable post op Pre DM: on ozempic/metformin at home - hold, pharmacy on board for glycemic assistance DELMIS: Cpap at HS DVT ppx: per primary Dispo: per primary PCP: Erik Pt was seen and examined in collaboration with Dr. Long, please see addendum I spent a total of 45 minutes coordinating, documenting and providing care for this patient excluding time spent in the performance of separately billed services or time spent by another provider/QHP. Thank you for this consultation. We will follow the patient with you during their hospital stay. You can reach a member of the [facility] Hospitalist Team 15/11 via hospitalist role on tiger text. Admission and Anticipated Discharge Date Admission Date: May 25, 2024 Subjective No acute events overnight. He has minimal back pain and radicular sx are resolved. Denies f/c/s, chest pain, sob, n/v. He has not passed any gas yet. Review of Systems Review of Systems: All systems reviewed & are unremarkable except as noted in HPI & below Physical Exam Physical Exam: Gen: WD/WN, M, NAD, A&O x3 HEENT: Normocephalic, atraumatic, conjunctivae moist, sclerae anicteric, mucous membranes moist. Lung: Clear to Auscultation bilaterally, no wheezes/rales/rhonchi Heart: Regular rate, regular rhythm, no murmurs, rubs, or gallops Abdomen: Soft, NT, ND +BS x 4 Extremities: No edema, lumbar dressing CDI Skin: Warm, no rash, negative turgor. Results & Data Results & Data Vital Signs (Past 12 Hours) Vital Signs Temp Pulse Resp BP Pulse Ox O2 Del Method 05/26/24 07:00 36.6 C 63 20 149/79 H 96 Room Air 05/26/24 06:41 36.7 C 63 15 132/73 94 Room Air 05/26/24 03:00 36.5 C 63 18 148/76 H 97 CPAP 05/25/24 23:45 36.6 C 61 18 128/69 96 CPAP Laboratory Results Short CBC 05/26/24 Range/Units 05:45 WBC 12.55 H (4.8-10.8) K/ul Hgb 12.4 L (14.0-18.0) g/dl Hct 35.8 L (42.0-52.0) % Plt Count 242 (130-400) K/uL BMP 05/26/24 05:45 Sodium 134 L Potassium 3.7 Chloride 99 Carbon Dioxide 26 BUN 15 Creatinine 0.96 Glucose 137 H Calcium 9.2 I have independently reviewed and interpreted patient's CBC, BMP Medications Administered Current Inpatient Medications Acetaminophen (Acetaminophen 500 Mg Tab) 1,000 mg PO Q8H PRN PRN Reason: MILD Pain Scale 1,2,3 & Pre PT Stop: 06/24/24 14:10 Al Hydrox/Mg Hydrox/Simethicone (Aluminum/Magnesium Susp 30 Ml Udc) 30 ml PO Q6H PRN PRN Reason: Dyspepsia Stop: 06/24/24 14:10 Albuterol (Albuterol Hfa 8 Gm Inhaler) 2 puffs INH QID PRN PRN Reason: Wheezing Stop: 06/24/24 14:10 Amlodipine Besylate (Amlodipine Besylate 5 Mg Tab) 10 mg PO QAM TIM Stop: 06/25/24 08:59 Last Admin: 05/26/24 09:22 Dose: 10 mg Atorvastatin Calcium (Atorvastatin 20 Mg Tab) 20 mg PO QPM TIM Stop: 06/24/24 20:59 Last Admin: 05/25/24 20:28 Dose: 20 mg Bisacodyl (Bisacodyl 10 Mg Supp) 10 mg NJ DAILY PRN PRN Reason: Constipation Stop: 06/24/24 14:10 Cyanocobalamin (Cyanocobalamin (B-12) 500 Mcg Tablet) 1,000 mcg PO QAM TIM Stop: 06/25/24 08:59 Last Admin: 05/26/24 09:22 Dose: 1,000 mcg Dextrose (Dextrose 50% 50 Ml Syringe) 25 - 50 ml IV UD PRN; Protocol PRN Reason: Hypoglycemia Protocol Stop: 06/24/24 14:44 Diphenhydramine HCl (Diphenhydramine Capsule 25 Mg Cap) 25 mg PO Q6H PRN PRN Reason: Allergic Rhinitis/Insomnia Stop: 06/24/24 14:10 Famotidine (Famotidine 20 Mg Tab) 20 mg PO Q12H PRN PRN Reason: Dyspepsia Stop: 06/24/24 14:10 Fluticasone Furoate (Fluticasone Furoate 100mcg 14 Puffs/Inhaler) 1 puffs INH QAM [facility] Stop: 06/25/24 08:59 Last Admin: 05/26/24 09:28 Dose: 1 puffs Fluticasone Propionate (Fluticasone Propionate Na Spr 16 Gm Btl) 2 sprays NICHOL DAILY PRN PRN Reason: Allergy Symptoms Stop: 06/24/24 14:10 Folic Acid (Folic Acid 400 Mcg Tab) 400 mcg PO DAILY [facility] Stop: 06/25/24 08:59 Last Admin: 05/26/24 09:21 Dose: 400 mcg Gabapentin (Gabapentin 300 Mg Cap) 300 mg PO TID [facility] Stop: 06/24/24 14:10 Last Admin: 05/26/24 09:23 Dose: 300 mg Glucagon (Glucagon For Inj 1 Mg Vial) 1 mg SQ UD PRN; Protocol PRN Reason: Hypoglycemia Protocol Stop: 06/24/24 14:44 Glucose (Glucose 40% Gel 15 Gm Tube) 15 - 30 gm PO UD PRN; Protocol PRN Reason: Hypoglycemia Protocol Stop: 06/24/24 14:44 Glucose (Glucose 10 Tab/Tube) 4 - 8 tab PO UD PRN; Protocol PRN Reason: Hypoglycemia Protocol Stop: 06/24/24 14:44 Hydromorphone HCl (Hydromorphone Inj 0.5 Mg/0.5 Ml Syr) 0.5 mg IV Q3H PRN PRN Reason: MODERATE Pain (Scale 4,5,6) & Pre PT Stop: 06/08/24 14:10 Hydromorphone HCl (Hydromorphone Inj 1 Mg/Ml Syringe) 1 mg IV Q3H PRN PRN Reason: SEVERE Pain (Scale 7,8,9,10) Stop: 06/08/24 14:10 Hydroxyzine HCl (Hydroxyzine Hcl 25 Mg Tab) 25 mg PO Q8H PRN PRN Reason: Anxiety Stop: 06/24/24 14:10 Promethazine HCl (Phenergan) 12.5 mg in 50.5 mls @ 202 mls/hr IV Q6H PRN PRN Reason: Nausea And Vomiting Stop: 06/24/24 14:10 Influenza Virus Vaccine Quadrival (Do Not Administer Flu Vaccine) 1 each N/A PRN PRN PRN Reason: Notification Stop: 06/24/24 14:10 Insulin Aspart (Insulin Aspart Per Unit Charge) 0 units SC ACHS [facility] Stop: 06/24/24 16:29 Last Admin: 05/26/24 08:32 Dose: 12 units Insulin Glargine (Lantus Per Unit Charge) 10 units SC DAILY [facility] Stop: 06/25/24 08:59 Last Admin: 05/26/24 08:32 Dose: 10 units Loratadine (Loratadine 10 Mg Tab) [facility] [place] [place] Stop: 06/25/24 08:59 Last Admin: 05/26/24 09:21 Dose: 10 mg Lorazepam (Lorazepam 0.5 Mg Tab) 0.5 mg PO Q8H PRN PRN Reason: Sedation/Anxiety Stop: 06/24/24 14:10 Lorazepam (Lorazepam 2 Mg/1 Ml Vial) 0.5 mg IV Q8H PRN PRN Reason: Sedation/Anxiety Stop: 06/24/24 14:10 Magnesium Hydroxide (Magnesium Hydroxide Susp 30 Ml Udc) 30 ml PO Q24H PRN PRN Reason: Constipation Stop: 06/24/24 14:10 Metoclopramide HCl (Metoclopramide Hcl Inj 5 Mg/Ml 2 Ml Vial) 10 mg IV Q6H PRN PRN Reason: Nausea &/or Vomiting Stop: 06/24/24 14:10 Metoprolol Succinate (Metoprolol Succ 25mg Ext Rel Tab) 12.5 mg [facility] [place] [place] Stop: 06/25/24 08:59 Last Admin: 05/26/24 09:24 Dose: 12.5 mg Miscellaneous (Order Awaiting Action - Olopatadine Eye Drops) 1 each N/A QS TIM Stop: 06/24/24 15:59 Last Admin: 05/26/24 07:21 Dose: Not Given Miscellaneous (Carbohydrates For Hypoglycemia ) 15 - 30 gm PO UD PRN PRN Reason: Hypoglycemia Treatment Stop: 06/24/24 14:44 Miscellaneous Information (Pharmacy Glycemic Mgmt Consult) 1 each N/A UD PRN PRN Reason: Consult Stop: 06/24/24 14:10 Naloxone HCl (Naloxone Hcl 0.4 Mg/1 Ml Vial/Carp) 0.1 mg IV Q5M PRN PRN Reason: Oversedation/Resp depression Stop: 06/24/24 14:10 Ondansetron HCl (Ondansetron Inj 2 Mg/Ml 2 Ml Vial) 4 mg IV Q6H PRN PRN Reason: Nausea &/or Vomiting Stop: 06/24/24 14:10 Ondansetron HCl (Ondansetron 4 Mg Od Tab) 4 mg PO Q6H PRN PRN Reason: Nausea Stop: 06/24/24 14:10 Oxycodone/Acetaminophen (Oxycodone/Acetaminophen 5mg/325mg Tab) 1 - 2 tab PO Q4H PRN PRN Reason: Pain & Pre PT Stop: 06/08/24 14:10 Last Admin: 05/25/24 17:47 Dose: 2 tab Pantoprazole Sodium (Pantoprazole 40 Mg Tab) 40 mg PO QAM TIM Stop: 06/25/24 08:59 Last Admin: 05/26/24 09:24 Dose: 40 mg Pneumococcal Polyvalent Vaccine (Do Not Administer Pneumococcal Vaccine) 1 each N/A PRN PRN PRN Reason: Notification Stop: 06/24/24 14:10 Polyethylene Glycol (Polyethylene (Miralax) 17 Gm Pack) 17 gm PO Q6 TIM Stop: 06/25/24 05:59 Last Admin: 05/26/24 05:58 Dose: 17 gm Senna/Docusate Sodium (Docusate Sodium/Senna 50/8.6mg Tab) 2 tab PO BID PRN PRN Reason: Constipation Stop: 06/24/24 14:10 Senna/Docusate Sodium (Docusate Sodium/Senna 50/8.6mg Tab) 2 tab PO HS TIM Stop: 06/24/24 20:59 Last Admin: 05/25/24 20:33 Dose: 2 tab Sodium Biphosphate/Sodium Phosphate (Sod Phosphate/Sod Biphosphate Enema 132 Ml Btl) 132 ml NJ ONE PRN PRN Reason: Constipation Stop: 06/24/24 14:10 Umeclidinium/Vilanterol (Umeclidinium/Vilanterol 62.5/25mcg 7 Puffs/Inhaler) 1 puffs INH DAILY TIM Stop: 06/25/24 08:59 Last Admin: 05/26/24 09:28 Dose: 1 puffs Vitamin D (Cholecalciferol 125 Mcg (5,000 Units) Tab) 125 mcg PO DAILY TIM Stop: 06/25/24 08:59 Last Admin: 05/26/24 09:24 Dose: 125 mcg Zolpidem Tartrate (Zolpidem Tartrate 5 Mg Tab) 5 mg PO HS TIM Stop: 06/24/24 20:59 Last Admin: 05/25/24 21:47 Dose: 5 mg
--- NOTE | 2024-05-26 14:29 | Pharmacy Report ---
Pharmacy Glycemic Short Note 2 - Date of Service May 26, 2024 - Glycemic Short BSG Results (Last 24 hours): 05/25/24 05/25/24 05/26/24 16:26 20:20 02:01 Glucose POC Glucose 240 H 202 H 144 H 05/26/24 05/26/24 05/26/24 05:45 07:37 11:17 Glucose 137 H POC Glucose 140 H 192 H OUTPATIENT ANTIDIABETIC REGIMEN: * Metformin XR 2 g PO PM * Ozempic 0.5 mg SC every Tuesday HbA1c: * 6.7% (05/04/24) ASSESSMENT: 05/26: * Mr. Harper received 36 units of insulin yesterday, 20 of which were basal. BSGs were: 240-202 mg/dL last night. * Fasting BSG 140 mg/dL this AM. POD #1 and tolerating T2DM diet. No ongoing steroids. Given A1c and Metformin use, do believe patient will require some form of basal insulin while inpatient. Plan to order half of yesterday's dose. * No changes to Novolog. 05/25: * 63 yo M admitted postoperatively on 05/25/24 following a spinal surgery. Pharmacy has been consulted to assist with inpatient glycemic management. Ajit desai is a Type 2 diabetic as an outpatient. Please refer to outpatient regimen and most recent HbA1c above. * Preop BSG was 191 mg/dL. Did receive 8 mg of IV dexamethasone periop. No ongoing steroids ordered. T2DM diet ordered but unsure how tolerating at this time. * Will give a one time basal dose this afternoon to cover steroids given. Reassess basal in AM. * Novolog to be started based on weight/stress of 2. One time overnight check ordered for early AM tomorrow. PLAN FOR INPATIENT GLYCEMIC CONTROL: * Hold outpatient oral diabetes medications * Basal insulin * Lantus 10 units SC daily * Bolus insulin * NovoLog per scale ACHS or Q6hrs while NPO * Goal Range: Low 110 mg/dL - High 140 mg/dL * Correction Factor: 15 mg/dL/unit * Nutritional / Prandial insulin per carb ratio of 1 unit per 5 grams CHO consumed
[2024-05-26] MEDS ORDERED: tiZANidine HCL 4 MG TABLET PO PRN (16:06)
[2024-05-27 06:25] LABS: Hematocrit (blood only) 35.2 % (42.0-52.0); Hemoglobin 12.4 g/dl (14.0-18.0); Mean Corpuscular Hemoglobin 29.5 pg (25.0-34.0); Mean Corpuscular Hgb Conc 35.2 g/dL (32.0-36.0); Mean Corpuscular Volume 83.8 fL (80.0-100.0); Mean Platelet Volume 9.5 fL (9.4-12.4); Platelet Count 228 K/uL (130-400); RDW Coefficient of Variation 13.1 % (11.5-14.5); RDW Standard Deviation 39.8 fL (36.4-46.3); White Blood Count 10.74 K/ul (4.8-10.8)
[2024-05-27 07:27] VITALS: TEMP 98.2; O2SAT 94
--- NOTE | 2024-05-27 07:43 | Orthopedic Progress Note ---
Date of Service May 27, 2024 Assessment & Plan (1) S/P lumbar fusion: - WBAT, mobilize with PT - pain control prn percocet and muscle relaxers - diet as tolerated - scds and ambulate for DVT prophylaxis - drain-output this morning was 20 cc. Was removed during dressing change today. -Follow-up as an outpatient 2 weeks postop. -Home medications sent in already by Dr. Henry - appreciate hospitalist assistance with medical comorbidities - D/C home today Subjective Operation Date: 05/25/24 07:30 Actual Procedures p Left L3-L4 Extreme Lateral Interbody Fusion, L3-L4 Posterior Fusion, L3 Laminectomy, CT Navigation and Spinal Cord Monitoring(Not Applicable) - Fco Henry MD Patient is postop day 2 from a lumbar decompression and fusion by Dr. Henry. He states he is doing well. Denies any numbness or tingling or pain in the bilateral lower extremities. He states that he has been ambulating well with therapy. Denies much back pain. Feels ready to go home. Drain output as of this morning at 630 on 05/27/2024 was 20cc. Review of Systems All systems reviewed & are unremarkable except as noted in HPI & below. Physical Exam General: Alert and oriented. No acute distress. Lumbar spine: Wound check satisfactory. No erythema, edema, active drainage or dehiscence of the wound. His drain was removed at today's visit. New dressing placed. He has good mobility of his bilateral lower extremities. He is neurovascularly intact in the bilateral lower extremities. Results & Data Results & Data Laboratory Results . Diagnostic Findings . PG Care Time/CCT Total # of Minutes Spent Total Time Spent with Patient: Total time spent is greater than 50% in coordination of care (as documented) at patient's floor/unit and/or counseling patient: Coding Level of Care Code 95133 Post Operative Follow-Up Diagnoses S/P lumbar fusion Z98.1
[2024-05-27 08:11] VITALS: BP 148/89; PULSE 69; RESP 15
--- NOTE | 2024-05-27 09:24 | Hospitalist Progress Note ---
Date of Service May 27, 2024 Assessment & Plan (1) Lumbar radiculopathy: (2) Spondylolisthesis, lumbar region: (3) Foraminal stenosis of lumbar region: (4) CAD (coronary artery disease): (5) Thoracic aortic ectasia: (6) Hypertension: (7) Hyperlipidemia: (8) Sleep apnea: (9) Pre-diabetes: (10) Acute blood loss as cause of postoperative anemia: (11) Morbid obesity: Plan POD #2 L3-4 Extreme lateral interbody fusion, L3-4 Fusion, L3 Lami by Dr. Henry tolerated procedure well, EBL 75ml pt with acute blood loss anemia 2/2 expected surgical blood loss and likely dilutional component, hgb is stable at 12.4 on DOD continue pain/wound management per ortho continue activity/therapy per ortho He is encouraged to continue bowel regimen of colace BID and miralax q6hr until moving bowels regularly, he then may cut back and resume his typical home bowel regimen Chronic medical conditions: CAD/HTN/HLD: continue statin, amlodipine, lisinopril, metoprolol - BP stable post op Pre DM: on ozempic/metformin at home - resume at discharge DELMIS: Cpap at HS DVT ppx: per primary Dispo: Discharge to home today PCP: Erik Pt was seen and examined in collaboration with Dr. Long, please see addendum I spent a total of 35 minutes coordinating, documenting and providing care for this patient excluding time spent in the performance of separately billed services or time spent by another provider/QHP. Thank you for this consultation. We will follow the patient with you during their hospital stay. You can reach a member of the [facility] Hospitalist Team 15/11 via hospitalist role on tiger text. Admission and Anticipated Discharge Date Admission Date: May 25, 2024 Subjective He feels well and is going home today. He has not yet passed flatus. He states he has trouble with constipation at baseline. Denies f/c/s, chest pain, sob, n/v/d. Review of Systems Review of Systems: All systems reviewed & are unremarkable except as noted in HPI & below Physical Exam Physical Exam: Gen: WD/WN, M, NAD, A&O x3 HEENT: Normocephalic, atraumatic, conjunctivae moist, sclerae anicteric, mucous membranes moist. Lung: Clear to Auscultation bilaterally, no wheezes/rales/rhonchi Heart: Regular rate, regular rhythm, no murmurs, rubs, or gallops Abdomen: Soft, NT, ND +BS x 4 Extremities: No edema, lumbar dressing CDI Skin: Warm, no rash, negative turgor. Results & Data Results & Data Vital Signs (Past 12 Hours) Vital Signs Temp Pulse Resp BP Pulse Ox O2 Del Method 05/27/24 08:07 36.8 C 69 15 148/89 H 94 Room Air 05/27/24 07:25 36.8 C 59 L 17 145/85 H 94 Room Air Laboratory Results Short CBC 05/27/24 Range/Units 05:57 WBC 10.74 (4.8-10.8) K/ul Hgb 12.4 L (14.0-18.0) g/dl Hct 35.2 L (42.0-52.0) % Plt Count 228 (130-400) K/uL I have independently reviewed and interpreted patient's cbc Diagnostic Findings Lumbar Spine X-Ray 05/26/24 07:00 EXAM: Radiographs of the Lumbosacral Spine 3 Views INDICATION: Postoperative imaging. TECHNIQUE: AP and lateral views were obtained with the patient standing. COMPARISON: No relevant prior studies available. FINDINGS: Limitations: None. Vertebrae: For the purposes of this dictation the most proximal nonrib-bearing vertebra is considered L1. There is lumbarization of the transitional first sacral segment. Intact well-seated posterior fusion hardware L4-L5. No fracture or subluxation. Mild spondylosis at all levels. There is hypertrophic change of the facets above and below the fusion. Sacrum/coccyx: No acute change noted. Disc spaces: Well-contained metallic intervertebral disc spacer expands the L4-L5 intervertebral disc space. There is narrowing L5-S1. Probable bony foraminal encroachment L5-S1. Soft tissues: Expected postoperative soft tissue swelling noted. There is a drain in place. IMPRESSION: Satisfactory appearance of posterior L4-L5 fusion hardware. ACT 112: Negative or not required by law. Electronically signed by Ly Smith 05-26-2024 09:16 AM Medications Administered Current Inpatient Medications Acetaminophen (Acetaminophen 500 Mg Tab) 1,000 mg PO Q8H PRN PRN Reason: MILD Pain Scale 1,2,3 & Pre PT Stop: 06/24/24 14:10 Al Hydrox/Mg Hydrox/Simethicone (Aluminum/Magnesium Susp 30 Ml Udc) 30 ml PO Q6H PRN PRN Reason: Dyspepsia Stop: 06/24/24 14:10 Albuterol (Albuterol Hfa 8 Gm Inhaler) 2 puffs INH QID PRN PRN Reason: Wheezing Stop: 06/24/24 14:10 Amlodipine Besylate (Amlodipine Besylate 5 Mg Tab) 10 mg PO QAM TIM Stop: 06/25/24 08:59 Last Admin: 05/27/24 08:23 Dose: 10 mg Atorvastatin Calcium (Atorvastatin 20 Mg Tab) 20 mg PO QPM TIM Stop: 06/24/24 20:59 Last Admin: 05/26/24 20:51 Dose: 20 mg Bisacodyl (Bisacodyl 10 Mg Supp) 10 mg AK DAILY PRN PRN Reason: Constipation Stop: 06/24/24 14:10 Cyanocobalamin (Cyanocobalamin (B-12) 500 Mcg Tablet) 1,000 mcg PO QAM TIM Stop: 06/25/24 08:59 Last Admin: 05/27/24 08:23 Dose: 1,000 mcg Dextrose (Dextrose 50% 50 Ml Syringe) 25 - 50 ml IV UD PRN; Protocol PRN Reason: Hypoglycemia Protocol Stop: 06/24/24 14:44 Diphenhydramine HCl (Diphenhydramine Capsule 25 Mg Cap) 25 mg PO Q6H PRN PRN Reason: Allergic Rhinitis/Insomnia Stop: 06/24/24 14:10 Famotidine (Famotidine 20 Mg Tab) 20 mg PO Q12H PRN PRN Reason: Dyspepsia Stop: 06/24/24 14:10 Fluticasone Furoate (Fluticasone Furoate 100mcg 14 Puffs/Inhaler) 1 puffs INH QAM TIM Stop: 06/25/24 08:59 Last Admin: 05/27/24 08:24 Dose: 1 puffs Fluticasone Propionate (Fluticasone Propionate Na Spr 16 Gm Btl) 2 sprays NICHOL DAILY PRN PRN Reason: Allergy Symptoms Stop: 06/24/24 14:10 Folic Acid (Folic Acid 400 Mcg Tab) 400 mcg PO DAILY TIM Stop: 06/25/24 08:59 Last Admin: 05/27/24 08:23 Dose: 400 mcg Gabapentin (Gabapentin 300 Mg Cap) 300 mg PO TID [facility] Stop: 06/24/24 14:10 Last Admin: 05/27/24 08:23 Dose: 300 mg Glucagon (Glucagon For Inj 1 Mg Vial) 1 mg SQ UD PRN; Protocol PRN Reason: Hypoglycemia Protocol Stop: 06/24/24 14:44 Glucose (Glucose 40% Gel 15 Gm Tube) 15 - 30 gm PO UD PRN; Protocol PRN Reason: Hypoglycemia Protocol Stop: 06/24/24 14:44 Glucose (Glucose 10 Tab/Tube) 4 - 8 tab PO UD PRN; Protocol PRN Reason: Hypoglycemia Protocol Stop: 06/24/24 14:44 Hydromorphone HCl (Hydromorphone Inj 0.5 Mg/0.5 Ml Syr) 0.5 mg IV Q3H PRN PRN Reason: MODERATE Pain (Scale 4,5,6) & Pre PT Stop: 06/08/24 14:10 Hydromorphone HCl (Hydromorphone Inj 1 Mg/Ml Syringe) 1 mg IV Q3H PRN PRN Reason: SEVERE Pain (Scale 7,8,9,10) Stop: 06/08/24 14:10 Hydroxyzine HCl (Hydroxyzine Hcl 25 Mg Tab) 25 mg PO Q8H PRN PRN Reason: Anxiety Stop: 06/24/24 14:10 Promethazine HCl (Phenergan) 12.5 mg in 50.5 mls @ 202 mls/hr IV Q6H PRN PRN Reason: Nausea And Vomiting Stop: 06/24/24 14:10 Influenza Virus Vaccine Quadrival (Do Not Administer Flu Vaccine) 1 each N/A PRN PRN PRN Reason: Notification Stop: 06/24/24 14:10 Insulin Aspart (Insulin Aspart Per Unit Charge) 0 units SC ACHS [facility] Stop: 06/24/24 16:29 Last Admin: 05/27/24 08:15 Dose: Not Given Insulin Glargine (Lantus Per Unit Charge) 10 units SC DAILY [facility] Stop: 06/25/24 08:59 Last Admin: 05/27/24 08:24 Dose: 10 units Loratadine (Loratadine 10 Mg Tab) 10 mg PO QAM [facility] Stop: 06/25/24 08:59 Last Admin: 05/27/24 08:23 Dose: 10 mg Lorazepam (Lorazepam 0.5 Mg Tab) 0.5 mg PO Q8H PRN PRN Reason: Sedation/Anxiety Stop: 06/24/24 14:10 Lorazepam (Lorazepam 2 Mg/1 Ml Vial) 0.5 mg IV Q8H PRN PRN Reason: Sedation/Anxiety Stop: 06/24/24 14:10 Magnesium Hydroxide (Magnesium Hydroxide Susp 30 Ml Udc) 30 ml PO Q24H PRN PRN Reason: Constipation Stop: 06/24/24 14:10 Metoclopramide HCl (Metoclopramide Hcl Inj 5 Mg/Ml 2 Ml Vial) 10 mg IV Q6H PRN PRN Reason: Nausea &/or Vomiting Stop: 06/24/24 14:10 Metoprolol Succinate (Metoprolol Succ 25mg Ext Rel Tab) 12.5 mg PO QAM TIM Stop: 06/25/24 08:59 Last Admin: 05/27/24 08:23 Dose: 12.5 mg Miscellaneous (Order Awaiting Action - Olopatadine Eye Drops) 1 each N/A QS TIM Stop: 06/24/24 15:59 Last Admin: 05/27/24 07:49 Dose: Not Given Miscellaneous (Carbohydrates For Hypoglycemia ) 15 - 30 gm PO UD PRN PRN Reason: Hypoglycemia Treatment Stop: 06/24/24 14:44 Miscellaneous Information (Pharmacy Glycemic Mgmt Consult) 1 each N/A UD PRN PRN Reason: Consult Stop: 06/24/24 14:10 Naloxone HCl (Naloxone Hcl 0.4 Mg/1 Ml Vial/Carp) 0.1 mg IV Q5M PRN PRN Reason: Oversedation/Resp depression Stop: 06/24/24 14:10 Ondansetron HCl (Ondansetron Inj 2 Mg/Ml 2 Ml Vial) 4 mg IV Q6H PRN PRN Reason: Nausea &/or Vomiting Stop: 06/24/24 14:10 Ondansetron HCl (Ondansetron 4 Mg Od Tab) 4 mg PO Q6H PRN PRN Reason: Nausea Stop: 06/24/24 14:10 Oxycodone/Acetaminophen (Oxycodone/Acetaminophen 5mg/325mg Tab) 1 - 2 tab PO Q4H PRN PRN Reason: Pain & Pre PT Stop: 06/08/24 14:10 Last Admin: 05/27/24 08:30 Dose: 2 tab Pantoprazole Sodium (Pantoprazole 40 Mg Tab) 40 mg PO QAM TIM Stop: 06/25/24 08:59 Last Admin: 05/27/24 08:24 Dose: 40 mg Pneumococcal Polyvalent Vaccine (Do Not Administer Pneumococcal Vaccine) 1 each N/A PRN PRN PRN Reason: Notification Stop: 06/24/24 14:10 Polyethylene Glycol (Polyethylene (Miralax) 17 Gm Pack) 17 gm PO Q6 TIM Stop: 06/25/24 05:59 Last Admin: 05/27/24 06:24 Dose: 17 gm Senna/Docusate Sodium (Docusate Sodium/Senna 50/8.6mg Tab) 2 tab PO BID PRN PRN Reason: Constipation Stop: 06/24/24 14:10 Senna/Docusate Sodium (Docusate Sodium/Senna 50/8.6mg Tab) 2 tab PO HS [facility] Stop: 06/24/24 20:59 Last Admin: 05/26/24 20:51 Dose: 2 tab Sodium Biphosphate/Sodium Phosphate (Sod Phosphate/Sod Biphosphate Enema 132 Ml Btl) 132 ml AK ONE PRN PRN Reason: Constipation Stop: 06/24/24 14:10 Tizanidine HCl (Tizanidine Hcl 4 Mg Tablet) 4 mg PO Q8 PRN PRN Reason: Muscle Spasm Stop: 06/25/24 21:59 Umeclidinium/Vilanterol (Umeclidinium/Vilanterol 62.5/25mcg 7 Puffs/Inhaler) 1 puffs INH DAILY TIM Stop: 06/25/24 08:59 Last Admin: 05/27/24 08:24 Dose: 1 puffs Vitamin D (Cholecalciferol 125 Mcg (5,000 Units) Tab) 125 mcg PO DAILY TIM Stop: 06/25/24 08:59 Last Admin: 05/27/24 08:23 Dose: 125 mcg Zolpidem Tartrate (Zolpidem Tartrate 5 Mg Tab) 5 mg PO HS TIM Stop: 06/24/24 20:59 Last Admin: 05/26/24 20:51 Dose: 5 mg
--- NOTE | 2024-05-27 09:54 | Discharge Summary ---
Date of Service May 27, 2024 Principal Diagnosis Same as "Discharge Diagnosis" noted below under Discharge Instructions. Discharge Exam General: Alert and oriented. No acute distress. Lumbar spine: Wound check satisfactory. No erythema, edema, active drainage or dehiscence of the wound. His drain was removed at today's visit. New dressing placed. He has good mobility of his bilateral lower extremities. He is neurovascularly intact in the bilateral lower extremities. Discharge Data Consultations 05/25/24 14:11 Consult Hospitalist Routine Procedures Performed Operation Date: 05/25/24 07:30 Actual Procedures p Left L3-L4 Extreme Lateral Interbody Fusion, L3-L4 Fusion, L3 Laminectomy, CT Navigation and Spinal Cord Monitoring(Not Applicable) - Fco Henry MD Ordered Studies 05/25/24 07:30 CT lumbar spine wo con Routine [place] lumbar spine 2-3V Routine PG Care Time/CCT Total # of Minutes Spent Total Time Spent with Patient: Total time spent is greater than 50% in coordination of care (as documented) at patient's floor/unit and/or counseling patient: Discharge Plan Discharge Items Patient Disposition: Home - Self-Care Reason For Visit: Lumbar Spondylosis, Foraminal Stenosis of Lumbar R Discharge Diagnosis: Lumbar Spondylosis, Radiculopathy s/p Anterior Posterior Lumbar Fusion Condition on Discharge: Good Activity: As commented below Activity Comment: follow post op instruction sheet Lifting: No more than 10 pounds Bathing Comment: follow post op instruction sheet Non-emergency contact: Surgeon Call non-emergency contact if: your pain is not controlled, your pain is worsening, your temperature is above 101, your wound has increased redness and your wound has increased drainage Follow-up/Referrals: Christa Valencia MD [Primary Care Provider] - Diet: Carb Consistent or DM2 Addtl Attending Provider Instructions: follow up in office in 2 weeks no NSAIDs for 2 months It is encouraged you continue to take Colace 100mg by mouth twice daily, along with Miralax 17g every 6 hours until your bowels are moving consistently. You then may back off to your normal home bowel regimen. Pending Studies at Discharge: No Stand-Alone Forms: My [employer], Smoking Cessation Medications and DC Order Prescriptions: New tizanidine 4 mg Tablet 4 mg PO Q8 PRN (Reason: muscle spasm) Qty: 90 1RF oxycodone-acetaminophen [Percocet] 5-325 mg Tablet 1 - 2 tab PO Q4H PRN (Reason: pain) Qty: 90 0RF Continued metformin 1,000 mg Tablet 2,000 mg PO QPM Qty: 0 atorvastatin 10 mg Tablet 20 mg PO QPM Qty: 0 polyethylene glycol 3350 [Miralax] 17 gram Powder In Packet 17 g PO DAILY PRN (Reason: Constipation) sennosides-docusate sodium [Senna with Docusate Sodium] 8.6-50 mg Tablet 2 tab PO BID PRN (Reason: Constipation) lisinopril 10 mg Tablet 40 mg PO QAM omeprazole 20 mg Capsule,Delayed Release(Dr/Ec) 20 mg PO QAM fluticasone propionate 50 mcg/actuation [place],Suspension 2 spray Intranasal DAILY PRN (Reason: Allergy Symptoms) Benefiber Clear SF (dextrin) 3 gram/3.5 gram Powder In Packet 1 packet PO DAILY PRN (Reason: Constipation) zolpidem [Ambien] 5 mg Tablet 5 mg PO HS albuterol sulfate 90 mcg/actuation Hfa Aerosol Inhaler 2 puff INHALATION QID PRN (Reason: Wheezing) olopatadine 0.2 % Drops 1 drp OPHTHALMIC (EYE) BID PRN (Reason: Itching) vitamin [id number] acid 1,000-400 mcg Tablet, Sublingual 1 tab sublingual QAM gabapentin 300 mg capsule 300 mg PO TID Rx Instructions: Take 300 mg daily for four days, then increase to 300 mg twice daily for four days, then 300 mg TID amlodipine 5 mg tablet 10 mg PO QAM metoprolol succinate 25 mg tablet extended release 24 hr 12.5 mg PO QAM cholecalciferol (vitamin D3) [Vitamin D3] 125 mcg (5,000 unit) Tablet 125 mcg PO DAILY Trelegy Ellipta 100-62.5-25 mcg blister with device 1 inh INHALATION QAM Ozempic 0.25 mg or 0.5 mg (2 mg/3 mL) pen injector 0.5 mg SUBCUT UD loratadine [Claritin] 10 mg Tablet 10 mg PO QAM tramadol 50 mg tablet 50 mg PO Q6H PRN (Reason: pain) Qty: 15 0RF Discharge Orders: Discharge Order (Routine); Ordered 05/27/24 Ordered By: Karen Meyer Admission Data Admit Date/Time: 05/25/24 14:25 Attending Provider: Fco Henry Admit Provider: Fco Henry Primary Care Provider: Christa Valencia Other Providers: Guzman Tovar; Julius Long Other Interventions: Discharge Summary Assessment (RN) Last Done: 05/27/24 09:50
== END 2024-05-27 10:36 | disposition home or self-care (01) | DRG 402 ==
LOC: ASU 05:52 → 3E 14:25